=== PATIENT | female | born 1990 | race Caucasian/White ===

== ENCOUNTER 2022-07-03 13:51 | Outpatient (CLI) | payer SELFPAY ==
[2022-07-03 15:02] LABS: Clue Cells <20% Clue Cells Seen (None Seen); Trichomonas No Trichomonas Seen (None Seen); Yeast No Yeast Seen (None Seen)
[2022-07-03 16:42] LABS: Chlamydia DNA Amplified* NOT DETECTED (No Detected); GC DNA Amplified* NOT DETECTED (No Detected)
== END 2022-07-03 13:52 | disposition home or self-care (01) ==
PROVIDERS: PCP Family Medicine; Visit Provider Family Medicine
DX: N89.8 Other specified noninflammatory disorders of vagina (principal)
CPT/HCPCS: 87210; 87491; 87591

== ENCOUNTER 2023-11-05 13:41 | Outpatient (CLI) | payer OTHER, SELFPAY | END 2023-11-05 13:42 | disposition home or self-care (01) | PROVIDERS: PCP Family Medicine; Visit Provider Family Medicine | DX: Z01.818 Encounter for other preprocedural examination (principal); G56.01 Carpal tunnel syndrome, right upper limb | CPT/HCPCS: 80048; 85025 ==

== ENCOUNTER 2024-01-08 06:14 | Day surgery (SDC) | payer OTHER, SELFPAY ==
[2024-01-08] VITALS (15 sets, daily range): BP systolic 117–140; BP diastolic 66–85; PULSE 60–72; RESP 14–20; TEMP 36.3–36.6; O2SAT 97–100; BMI 25.2
--- OUTSIDE RECORDS SUMMARY | 2024-01-08 06:16 | XMS_ITS | Encounter Summary ---
Author Name Unknown Organization [place] Address [address] [place] [place] [address] Care Team Providers Care Business Development Recruiter Name Role Phone Zeus Beaulieu MD Primary Care Provider Zeus Beaulieu MD Unavailable [phone] Encounter Details Date Type Department Care Team (Latest Contact Info) Description 10/23/2023 Travel Social History Tobacco Use Types Packs/Day Years Used Date Smoking Tobacco: Never Assessed Adolescent Education Answer Date Record ed Getting School Help Needed Not on file 10/16 Sex and Gender Information Value Date Recorded Sex Assigned at Not on file Gender Identity Not on file Sexual Orientation Not on file documented as of this encounter Plan of Treatment Upcoming Encounters Date Type Department Care Team (Late st Contact Info) Description 02/06/2024 8:30 AM CDT Office Visit [facility] [address] [phone] documented as of this encounter Visit Diagnoses Not on filedocumented in this encounter Care Teams Business Development Recruiter Relationship Specialty Start Date End Date Zeus Beaulieu MD [facility] [address] [address] PCP - General Family Medicine 07/31/23 Zeus Beaulieu MD [facility] [address] [address] 07/31/23 documented as of this encounter
--- OUTSIDE RECORDS SUMMARY | 2024-01-08 06:16 | XMS_ITS | Encounter Summary ---
Author Name Unknown Organization [place] Address [address] [place] [address] Care Team Providers Care Intake Manager Name Role Phone Zeus Beaulieu MD Primary Care Provider Zeus Beaulieu MD Unavailable [phone] Reason for Visit * Consultation (Routine) - Pending Review Specialty Diagnoses / Procedures Referred By Austin calderon Referred To Contact Neurology Diagnoses Carpal tunnel syndrome, bilateral Zeus Beaulieu MD [facility] [address] [address] Referral ID Status Reason Start Date Expiration Date V isits Requested Visits Authorized [id number] Pending Review 07/31/2023 07/30/2024 1 1 Encounter Details Date Type Department Care Team (Late st Contact Info) Description 10/23/2023 8:30 AM DISTILLERY SUPERVISOR Office Visit [facility]rology Clinic [address] [phone] Zeus Beaulieu MD [facility] [address] [address] Rene Duffy MD [address] [place] [address] [address] [place] [address] Carpal tunnel syndrome, bilateral Social History Tobacco Use Types Packs/Day Years Used Date Smoking Tobacco: Never Assessed Adolescent Education Answer Date Record ed Getting School Help Needed Not on file 10/16 Sex and Gender Information Value Date Recorded Sex Assigned at Not on file Gender Identity Not on file Sexual Orientation Not on file documented as of this encounter Progress Notes * Rene Duffy MD - 10/23/2023 8:30 AM CST See procedure note. ILLERY SUPERVISOR documented in this encounter Procedure Notes * Olivia Russo - 10/23/2023 8:30 AM CSTAssociated Order(s): HI NCS MOTOR W OR W/O F-WAVE, 5 OR 6; HI NEEDLE EMG EA EXTREMTY W/PARASPINAL AREA COMPLETE [facility] [address], [address] [place] [address] Patient: Yolanda Jones Gender: Female : 1990 Visit Date: 10/23/2023 8:50:43 AM Interpreted by: Rene Duffy MD Age: 33 years Ref Provider: Zeus Beaulieu MD Reason for visit: Evaluate right upper. c/o numbness, tingling, pain in right hand/wrist > 1 year. Per patient, only right upper extremity is tested. NCS+ Motor Sites Latency Amplitude Distance Velocity Site (ms) Norm (mV) Norm (cm) (m/s) Norm Right Median (APB) Wrist 5.5 < 4.5 3.4 > 3.0 7 Elbow 10.0 - 2.4 - 26 58 > 50 Right Ulnar (ADM) Wrist 2.3 < 3.6 9.1 > 5.0 7 Bel Elbow 6.7 - 8.8 - 24 55 > 50 Abv Elbow 9.1 - 8.2 - 14 58 > 50 NCS+ Sensory Sites Onset Lat Peak Lat Amp (O-P) Distance Velocity Site ms (ms) ??V Norm cm m/s Norm Right Median Wrist-Dig II 3.3 4.2 17 > 15 13 39 > 50 Palm-Wrist 2.4 2.9 30 - 8 33 - Right Ulnar Wrist-Dig V 1.88 2.5 34 > 5 11 59 > 50 Palm-Wrist 1.23 1.70 22 - 8 65 - Inter-Nerve Comparisons Nerve 1 Value 1 Nerve 2 Value 2 Parameter Result Normal Sensory Sites R Median Palm-Wrist 2.9 ms R Ulnar Palm-Wrist 1.70 ms Peak Lat Diff 1.20 ms <0.40 F Wave Studies NR F-Lat (ms) Lat Norm (ms) L-R F-Lat (ms) L-R Lat Norm Right Ulnar (Abd Dig Min) 27.56 <32 <2.5 Electromyography Side Muscle Fib PSW Fasc IA # Amp Dur PPP RcmtRate Note Comment Right Brachiorad None None None N N N N N N N Right Pronator Teres None None None N N N N N N N Right Biceps None None None N N N N N N N Right Deltoid None None None N N N N N N N Right Triceps None None None N N N N N N N Right EDC None None None N N N N N N N Right FCU None None None N N N N N N N Right FDI None None None N N N N N N N Right APB None None None N N N N N N N SUMMARY Nerve conduction and EMG study of right upper extremity shows: Prolonged right median nerve distal motor latency with decreased amplitude and normal conduction velocity. Normal right ulnar distal motor latency, amplitude and conduction velocity. Abnormal right median and normal right ulnar sensory SNAPs. Prolonged right median-ulnar transcarpal peak latency comparison. Monopolar needle exam is normal. CLINICAL INTERPRETATION: This is an abnormal nerve conduction and EMG study. 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 Further clinical correlation is needed. Rene Duffy MD Neurologist [facility] Neurology [facility] Tel:- [phone] ILLERY SUPERVISOR documented in this encounter Plan of Treatment Upcoming Encounters Date Type Department Care Team (Late st Contact Info) Description 02/06/2024 8:30 AM CDT Office Visit [facility] Neurology [address] [phone] documented as of this encounter Procedures Procedure Name Priority Date/Time Associated Diagnosis Comments HI NCS MOTOR W OR W/O F-WAVE, 5 OR 6 Routine 10/23/2023 8:30 AM DISTILLERY SUPERVISOR Carpal tunnel syndrome, bilateral HI NEEDLE EMG EA EXTREMTY W/PARASPINAL AREA COMPLETE Routine 10/23/2023 8:30 AM DISTILLERY SUPERVISOR Carpal tunnel syndrome, bilateral documented in this encounter Results * HI NEEDLE EMG EA EXTREMTY W/PARASPINAL AREA COMPLETE (10/23/2023 8:30 AM DISTILLERY SUPERVISOR) Narrative Rene Duffy MD - 10/23/2023 8:30 AM DISTILLERY SUPERVISOR Rene Duffy MD ? 10/23/2023 ??8:57 AM [facility] [address], [address] [place] [address] Tel: ??[phone] ?? Patient: Yolanda Jones Gender: Female : 1990 Visit Date: 10/23/2023 8:50:43 AM Interpreted by: Rene Duffy MD Age: 33 years Ref Provider: Zeus Beaulieu MD Reason for visit: ??Evaluate right upper. c/o numbness, tingling, pain in right hand/wrist > 1 year. Per patient, only right upper extremity is tested. NCS+ Motor Sites ??Latency Amplitude Distance Velocity Site (ms) Norm (mV) Norm (cm) (m/s) Norm Right Median (APB) Wrist 5.5 ??< 4.5 3.4 ??> 3.0 7 ?? Elbow 10.0 - 2.4 - 26 58 ??> 50 Right Ulnar (ADM) Wrist 2.3 ??< 3.6 9.1 ??> 5.0 7 ?? Bel Elbow 6.7 - 8.8 - 24 55 ??> 50 Abv Elbow 9.1 - 8.2 - 14 58 ??> 50 NCS+ Sensory Sites ??Onset Lat Peak Lat Amp (O-P) Distance Velocity Site ms (ms) ??V Norm cm m/s Norm Right Median Wrist-Dig II 3.3 4.2 17 ??> 15 13 39 ??> 50 Palm-Wrist 2.4 2.9 30 - 8 33 - Right Ulnar Wrist-Dig V 1.88 2.5 34 ??> 5 11 59 ??> 50 Palm-Wrist 1.23 1.70 22 - 8 65 - Inter-Nerve Comparisons Nerve 1 Value 1 Nerve 2 Value 2 Parameter Result Normal Sensory Sites R Median Palm-Wrist 2.9 ms R Ulnar Palm-Wrist 1.70 ms Peak Lat Diff 1.20 ms <0.40 F Wave Studies NR F-Lat (ms) Lat Norm (ms) L-R F-Lat (ms) L-R Lat Norm Right Ulnar (Abd Dig Min) ?? 27.56 <32 ??<2.5 Electromyography Side Muscle Fib PSW Fasc IA # Amp Dur PPP RcmtRate Note Comment Right Brachiorad None None None N N N N N N N ?? Right Pronator Teres None None None N N N N N N N ?? Right Biceps None None None N N N N N N N ?? Right Deltoid None None None N N N N N N N ?? Right Triceps None None None N N N N N N N ?? Right EDC None None None N N N N N N N ?? Right FCU None None None N N N N N N N ?? Right FDI None None None N N N N N N N ?? Right APB None None None N N N N N N N ?? SUMMARY Nerve conduction and EMG study of right upper extremity shows: Prolonged right median nerve distal motor latency with decreased amplitude and normal conduction velocity. Normal right ulnar distal motor latency, amplitude and conduction velocity. Abnormal right median and normal right ulnar sensory SNAPs. Prolonged right median-ulnar transcarpal peak latency comparison. Monopolar needle exam is normal. CLINICAL INTERPRETATION: This is an abnormal nerve conduction and EMG study. ??The study is suggestive of a moderate right median neuropathy (suspected right carpal tunnel). ??Further clinical correlation is needed. Rene Duffy MD Neurologist [facility] Neurology [facility] Tel:- [phone] Rene Duffy MD PROCEDURES * HI NCS MOTOR W OR W/O F-WAVE, 5 OR 6 (10/23/2023 8:30 AM DISTILLERY SUPERVISOR) Narrative Rene Duffy MD - 10/23/2023 8:30 AM DISTILLERY SUPERVISOR Rene Duffy MD ? 10/23/2023 ??8:57 AM [facility] [place], [address], [address] [place] [address] Tel: ??[phone] ?? Patient: Yolanda Jones Gender: Female : 1990 Visit Date: 10/23/2023 8:50:43 AM Interpreted by: Rene Duffy MD Age: 33 years Ref Provider: Zeus Beaulieu MD Reason for visit: ??Evaluate right upper. c/o numbness, tingling, pain in right hand/wrist > 1 year. Per patient, only right upper extremity is tested. NCS+ Motor Sites ??Latency Amplitude Distance Velocity Site (ms) Norm (mV) Norm (cm) (m/s) Norm Right Median (APB) Wrist 5.5 ??< 4.5 3.4 ??> 3.0 7 ?? Elbow 10.0 - 2.4 - 26 58 ??> 50 Right Ulnar (ADM) Wrist 2.3 ??< 3.6 9.1 ??> 5.0 7 ?? Bel Elbow 6.7 - 8.8 - 24 55 ??> 50 Abv Elbow 9.1 - 8.2 - 14 58 ??> 50 NCS+ Sensory Sites ??Onset Lat Peak Lat Amp (O-P) Distance Velocity Site ms (ms) ??V Norm cm m/s Norm Right Median Wrist-Dig II 3.3 4.2 17 ??> 15 13 39 ??> 50 Palm-Wrist 2.4 2.9 30 - 8 33 - Right Ulnar Wrist-Dig V 1.88 2.5 34 ??> 5 11 59 ??> 50 Palm-Wrist 1.23 1.70 22 - 8 65 - Inter-Nerve Comparisons Nerve 1 Value 1 Nerve 2 Value 2 Parameter Result Normal Sensory Sites R Median Palm-Wrist 2.9 ms R Ulnar Palm-Wrist 1.70 ms Peak Lat Diff 1.20 ms <0.40 F Wave Studies NR F-Lat (ms) Lat Norm (ms) L-R F-Lat (ms) L-R Lat Norm Right Ulnar (Abd Dig Min) ?? 27.56 <32 ??<2.5 Electromyography Side Muscle Fib PSW Fasc IA # Amp Dur PPP RcmtRate Note Comment Right Brachiorad None None None N N N N N N N ?? Right Pronator Teres None None None N N N N N N N ?? Right Biceps None None None N N N N N N N ?? Right Deltoid None None None N N N N N N N ?? Right Triceps None None None N N N N N N N ?? Right EDC None None None N N N N N N N ?? Right FCU None None None N N N N N N N ?? Right FDI None None None N N N N N N N ?? Right APB None None None N N N N N N N ?? SUMMARY Nerve conduction and EMG study of right upper extremity shows: Prolonged right median nerve distal motor latency with decreased amplitude and normal conduction velocity. Normal right ulnar distal motor latency, amplitude and conduction velocity. Abnormal right median and normal right ulnar sensory SNAPs. Prolonged right median-ulnar transcarpal peak latency comparison. Monopolar needle exam is normal. CLINICAL INTERPRETATION: This is an abnormal nerve conduction and EMG study. ??The study is suggestive of a moderate right median neuropathy (suspected right carpal tunnel). ??Further clinical correlation is needed. Rene Duffy MD Neurologist [facility] Neurology [facility] Tel:- [phone] Rene Duffy MD PROCEDURES documented in this encounter Visit Diagnoses Diagnosis Carpal tunnel syndrome, bilateral Carpal tunnel syndrome documented in this encounter Care Teams Intake Manager Relationship Specialty Start Date End Date Zeus Beaulieu MD [facility] [address] [place] [address] PCP - General Family Medicine 07/31/23 Zeus Beaulieu MD [facility] [address]. [place] [address] 07/31/23 documented as of this encounter
--- OUTSIDE RECORDS SUMMARY | 2024-01-08 06:16 | XMS_ITS | Encounter Summary ---
Author Name Unknown Organization [place] Address [facility] [address] Care Team Providers Care Whey Department Operator Name Role Phone Zeus Beaulieu MD Primary Care Provider Zeus Beaulieu MD Unavailable [phone] Rene Duffy MD Unavailable [phone] Encounter Details Date Type Department Care Team (Late st Contact Info) Description 11/14/2023 Telephone [facility] [address] [phone] Lizzy Floyd Social History Tobacco Use Types Packs/Day Years Used Date Smoking Tobacco: Never Assessed Adolescent Education Answer Date Record ed Getting School Help Needed Not on file 10/16 Sex and Gender Information Value Date Recorded Sex Assigned at Not on file Gender Identity Not on file Sexual Orientation Not on file documented as of this encounter Miscellaneous Notes * Telephone Encounter - Lizzy Floyd - 11/14/2023 12:32 PM CDT Called at 12:30 on 11-14-2023 and left message to try and schedule an EMG. First availability would be late december/early January. Left a call back number. documented in this encounter Plan of Treatment Upcoming Encounters Date Type Department Care Team (Late st Contact Info) Description 02/06/2024 8:30 AM CDT Office Visit [facility] [address] [place] [address] documented as of this encounter Visit Diagnoses Not on filedocumented in this encounter Care Teams Whey Department Operator Relationship Specialty Start Date End Date Zeus Beaulieu MD [facility] [address] [place] [address] PCP - General Family Medicine 07/31/23 Zeus Beaulieu MD [facility] [address] [address] 07/31/23 Rene Duffy MD [address] [facility] [address] [place] [address] Assigned Neuroscience Provider 11/09/23 documented as of this encounter
--- OUTSIDE RECORDS SUMMARY | 2024-01-08 06:16 | XMS_ITS | Encounter Summary ---
Author Name Unknown Organization [place] Address [address] [facility] [place] [address] Care Team Providers Care Digital Media Producer Name Role Phone Zeus Beaulieu MD Primary Care Provider Zeus Beaulieu MD Unavailable Rene Duffy MD Unavailable [phone] Encounter Details Date Type Department Care Team (Late st Contact Info) Description 11/12/2023 Medical Correspondence [facility] [address] [place] [address] Scan, Non-Provider Social History Tobacco Use Types Packs/Day Years [...] Description 02/06/2024 8:30 AM CDT Office Visit [facility] Neurology Clinic [address] [phone] documented as of this encounter Visit Diagnoses Not on filedocumented in this encounter Care Teams Digital Media Producer Relationship Specialty Start Date End Date Zeus Beaulieu MD [facility] [address] [place] [address] PCP - General Family Medicine 07/31/23 Zeus Beaulieu MD [facility] [address] [place] [address] 07/31/23 Rene Duffy MD [address] [place], [place] [id number] Assigned Neuroscience Provider 11/09/23 documented as of this encounter
--- OUTSIDE RECORDS SUMMARY | 2024-01-08 06:16 | XMS_ITS | Clinical Summary ---
Author Name Unknown Organization [place] Address [facility] [place] [address] Care Team Providers Care Plastic Outfitter Name Role Phone Zeus Beaulieu MD Primary Care Provider [phone] Zeus Beaulieu MD Unavailable [phone] Rene Duffy MD Unavailable [phone] Encounters Date Type Department Care Team Description 11/14/2023 Travel 11/14/2023 Telephone [facility] [address] [place] [address] Lizzy Floyd 11/12/2023 Medical Correspondence [facility] [address] [place] [phone] Scan, Non-Provider 10/23/2023 8:30 AM BATTERY PLATE REMOVER Office Visit [facility] [address] [phone] Zeus Beaulieu MD Aggarwal, Harsh, MD Carpal tunnel syndrome, bilateral 10/23/2023 Travel from Last 3 Months Social History Tobacco Use Types Packs/Day Years Used Date Smoking Tobacco: Never Assessed Adolescent Education Answer Date Record ed Getting School Help Needed Not on file 10/16 Sex and Gender Information Value Date Recorded Sex Assigned at Not on file Gender Identity Not on file Sexual Orientation Not on file Plan of Treatment Upcoming Encounters Date Type Department Care Team (Late Contact Info) Description 02/06/2024 8:30 AM CDT Office Visit [facility] [address] [phone] Health Maintenance Due Date Last Done Comments ADVANCE CARE PLANNING 1990 ANNUAL REVIEW OF HM ORDERS 1990 YEARLY PREVENTIVE VISIT 1990 HIV SCREENING 2005 HEPATITIS C SCREENING 01/25/2008 HEPATITIS B IMMUNIZATION (1 of 3 - 19+ 3-dose series) 2009 PAP 2011 COVID-19 Vaccine (3 - 2022- season) 2023 04/21/2021, 03/23/2021 PHQ-2 (once per calendar year) 2023 DTAP/TDAP/TD IMMUNIZATION (7 - Td or Tdap) 05/25/2026 05/25/2016, 12/22/2014, 12/22/2011, Additional history exists HPV IMMUNIZATION Completed 04/03/2011, , 06/18/2007 INFLUENZA VACCINE Completed 06/19/2023, , 06/04/2017, Additional history exists IPV IMMUNIZATION Aged Out No longer e ligible based on patient's age to complete this topic MENINGITIS IMMUNIZATION Aged Out No l onger eligible based on patient's age to complete this topic Pneumococcal Vaccine: Pediatrics (0 to 5 Years) and At-Risk Patients (6 to 64 Years) Aged Out No longer eligible based on patient's age to complete this topic RSV MONOCLONAL ANTIBODY Aged Out No l onger eligible based on patient's age to complete this topic Procedures Procedure Name Priority Date/Time Associated Diagnosis Comments ME NEEDLE EMG EA EXTREMTY W/PARASPINAL AREA COMPLETE Routine 10/23/2023 8:30 AM BATTERY PLATE REMOVER Carpal tunnel syndrome, bilateral ME NCS MOTOR W OR W/O F-WAVE, 5 OR 6 Routine 10/23/2023 8:30 AM BATTERY PLATE REMOVER Carpal tunnel syndrome, bilateral from Last 3 Months Results * ME NCS MOTOR W OR W/O F-WAVE, 5 OR 6 (10/23/2023 8:30 AM BATTERY PLATE REMOVER) Narrative Rene Duffy MD - 10/23/2023 8:30 AM BATTERY PLATE REMOVER Rene Duffy MD ? 10/23/2023 ??8:57 AM [facility] [address] [place] [address], [address] [place] [address] Tel: ??[phone] ?? Patient: Yolanda Jones Gender: Female : [...] correlation is needed. Rene Duffy MD Neurologist [facility] Neurology [facility] Tel:- [phone] Rene Duffy MD PROCEDURES * ME NEEDLE EMG EA EXTREMTY W/PARASPINAL AREA COMPLETE (10/23/2023 8:30 AM BATTERY PLATE REMOVER) Narrative Rene Duffy MD - 10/23/2023 8:30 AM BATTERY PLATE REMOVER Rene Duffy MD ? 10/23/2023 ??8:57 AM [facility] [address] [place] [address], [address] [place] [address] Tel: ??[phone] ?? Patient: Yolanda Jones Gender: Female : [...] correlation is needed. Rene Duffy MD Neurologist [facility] Neurology [facility] Tel:- [phone] Rene Duffy MD PROCEDURES from Last 3 Months Care Teams Plastic Outfitter Relationship Specialty Start Date End Date Zeus Beaulieu MD [facility] [address], [place] [address] PCP - General Family Medicine 07/31/23 Zeus Beaulieu MD [facility] [address], [place] [address] 07/31/23 Rene Duffy MD [address] [place] [address] Assigned Neuroscience Provider 11/09/23
--- OUTSIDE RECORDS SUMMARY | 2024-01-08 06:16 | XMS_ITS | Referral Summary ---
Author Name Unknown Organization [place] Address [address] [place] [address]. [place] [address] Care Team Providers Care Cutting Inspector Name Role Phone Zeus Beaulieu MD Primary Care Provider Zeus Beaulieu MD Unavailable [phone] Rene Duffy MD Unavailable [phone] Encounters Date Type Department Care Team Description 11/14/2023 Travel 11/14/2023 Telephone [facility] EMG Clinic [address] 3rd [place] [address] Lizzy Floyd 11/12/2023 Medical Correspondence [facility] [address] [place] [phone] Scan, Non-Provider 10/23/2023 Travel 10/23/2023 8:30 AM STEREO COMPILER Office Visit [facility] [address] [phone] Zeus Beaulieu MD Aggarwal, Harsh, MD Carpal tunnel syndrome, bilateral from Last 3 Months Social History Tobacco [...] [facility] [address] [place] [address] [place] [phone] Procedures Procedure Name Priority Date/Time Associated Diagnosis Comments SD NEEDLE EMG EA EXTREMTY W/PARASPINAL AREA COMPLETE Routine 10/23/2023 8:30 AM STEREO COMPILER Carpal tunnel syndrome, bilateral SD NCS MOTOR W OR W/O F-WAVE, 5 OR 6 Routine 10/23/2023 8:30 AM STEREO COMPILER Carpal tunnel syndrome, bilateral from Last 3 Months Results * SD NCS MOTOR W OR W/O F-WAVE, 5 OR 6 (10/23/2023 8:30 AM STEREO COMPILER) Narrative Rene Duffy MD - 10/23/2023 8:30 AM STEREO COMPILER Rene Duffy MD ? 10/23/2023 ??8:57 AM [facility] [address], [address] [place] [address] Tel: ??[phone] ?? Patient: Yolanda Jones Gender: Female : [...] correlation is needed. Rene Duffy MD Neurologist [facility] Neurology [facility] Tel:- [phone] Rene Duffy MD PROCEDURES * SD NEEDLE EMG EA EXTREMTY W/PARASPINAL AREA COMPLETE (10/23/2023 8:30 AM STEREO COMPILER) Narrative Rene Duffy MD - 10/23/2023 8:30 AM STEREO COMPILER Rene Duffy MD ? 10/23/2023 ??8:57 AM [facility], [address], [address] [place] [address] Tel: ??[phone] ?? Patient: Yolanda Jones Gender: Female : [...] correlation is needed. Rene Duffy MD Neurologist [facility] Neurology Clinic [facility] Tel:- [phone] Rene Duffy MD PROCEDURES from Last 3 Months Care Teams Cutting Inspector Relationship Specialty Start Date End Date Zeus Beaulieu MD [facility] [address] [place] [address] PCP - General Family Medicine 07/31/23 Zeus Beaulieu MD [facility] [address] [address] 07/31/23 Rene Duffy MD [address] [place] [address] Assigned Neuroscience Provider 11/09/23
--- OUTSIDE RECORDS SUMMARY | 2024-01-08 06:16 | XMS_ITS | Encounter Summary ---
Author Name Unknown Organization [place] Address [address] [facility] [place] [address] Care Team Providers Care Women'S Soccer Coach Name Role Phone Zeus Beaulieu MD Primary Care Provider Zeus Beaulieu MD Unavailable [phone] Rene Duffy MD Unavailable [phone] Encounter Details Date Type Department Care Team (Latest Contact Info) Description 11/14/2023 Travel Social History Tobacco Use Types Packs/Day [...] Description 02/06/2024 8:30 AM CDT Office Visit [facility] [address] [phone] documented as of this encounter Visit Diagnoses Not on filedocumented in this encounter Care Teams Women'S Soccer Coach Relationship Specialty Start Date End Date Zeus Beaulieu MD [facility] [address] [address] PCP - General Family Medicine 07/31/23 Zeus Beaulieu MD [facility] [address] . [place] [address] 07/31/23 Rene Duffy MD [address] [place] [address] Assigned Neuroscience Provider 11/09/23 documented as of this encounter
--- OUTSIDE RECORDS SUMMARY | 2024-01-08 06:17 | XMS_ITS | Referral Summary ---
Author Name Unknown Organization [facility] Address [address] [place] [address] Care Team Providers Care Trencher Driver Name Role Phone Unavailable Primary Care Provider Unavailabl e Source Comments Patient records contain information from all sites at [facility]. For routine questions regarding patient records, call [phone] during business hours, M-F 8:00 AM - 5:00 PM Central Time. Record requests for emergency care only can be directed to [phone] at any time.[facility] Allergies Active Allergy Reactions Criticality Noted Date Comments Pollen Extracts Other (see comments) Medium 04/25/2022 Sneezing, itchy eyes Medications Medication Sig Dispensed Refills Start Date End Date Status cetirizine (ZyrTEC) 10 mg tablet Take 10 mg by mouth daily. Take 1 tablet daily. Active lamoTRIgine (LaMICtaL) 25 mg tablet Take 25 mg by mouth daily. Take 4 tablets daily. Active Active Problems Problem Noted Date Diagnosed Date Attention Deficit With Hyperactivity Disorder Overview: Attention deficit disorder w/ hyperactivity Depression Major Recurrent Moderate 09/20/2011 Overview: Major depressive disorder, recurrent episode, Moderate Bipolar I Depressed 09/20/2011 Overview: Bipolar affective disorder, depressed Immunizations Name Administration Dates Next Due 4vHPV (discontinued) 06/18/2007 DTaP (Infanrix, Tripedia) 03/18/2009 H1N1 All Forms 07/01/2009 Influenza, Unspecified 07/06/2016,06/03/2009 Tdap 05/25/2016 Social History Tobacco Use Types Packs/Day Years Used Date Smoking Tobacco: Every Day Nutrition Answer Date Recorded Nutrition: EVOO Fat Source Unknown 10/28 Nutrition: Servings of Fruits/Vegetables per Day Not on file 10/28/2020 Dental Answer Date Recorded Dental: Regular Dentist Unknown 10/29/19 21 Sex and Gender Information Value Date Recorded Sex Assigned at Female 04/25/2022 3:36 PM CDT Gender Identity Female 04/25/2022 3:36 PM CDT Sexual Orientation Not on file Last Filed Vital Signs Vital Sign Reading Time Taken Comments Blood Pressure 116/66 08/22/2016 10:58 AM SUPERVISOR ROUGH END Pulse 88 08/22/2016 10:58 AM SUPERVISOR ROUGH END Temperature - - Respiratory Rate 18 04/25/2016 1:17 PM CDT Oxygen Saturation - - Inhaled Oxygen Concentration - - Weight 67.2 kg (148 lb 2.4 oz) 08/22/2016 10:58 AM SUPERVISOR ROUGH END Height 169 cm (5' 6.54) 08/29/2016 10:36 AM SUPERVISOR ROUGH END Body Mass Index 23.53 08/22/2016 10:58 AM SUPERVISOR ROUGH END Plan of Treatment Not on file [address] [place] [address]
--- OUTSIDE RECORDS SUMMARY | 2024-01-08 06:17 | XMS_ITS | Clinical Summary ---
Author Name Unknown Organization [facility] Address [address] [place] [address] Care Team Providers Care Oysterman Name Role Phone Unavailable Primary Care Provider Unavailabl e Source Comments Patient records contain information from all sites at [facility]. For routine questions regarding patient records, call [phone] during business hours, M-F 8:00 AM - 5:00 PM Central Time. Record requests for emergency care only can be directed to [phone] at any time.[facility] Allergies Active Allergy Reactions Criticality Noted Date [...] Comments Blood Pressure 116/66 08/22/2016 10:58 AM MANAGER DIGITAL AD OPERATIONS Pulse 88 08/22/2016 10:58 AM MANAGER DIGITAL AD OPERATIONS Temperature - - Respiratory Rate 18 04/25/2016 1:17 PM CDT Oxygen Saturation - - Inhaled Oxygen Concentration - - Weight 67.2 kg (148 lb 2.4 oz) 08/22/2016 10:58 AM MANAGER DIGITAL AD OPERATIONS Height 169 cm (5' 6.54) 08/29/2016 10:36 AM MANAGER DIGITAL AD OPERATIONS Body Mass Index 23.53 08/22/2016 10:58 AM MANAGER DIGITAL AD OPERATIONS Plan of Treatment Health Maintenance Due Date Last Done Comments Cervical Cancer Screening 1990 HIV Screening 1990 Hepatitis C Screening 1990 Tobacco Cessation counseling 1990 Pneumococcal vaccine (0-64 y ears) (1 of 2 - PCV) 01/25/1996 Hepatitis B Vaccines (1 of 3 - 19+ 3-dose series) 2009 COVID-19 Vaccine (3 - 2022-2 4 season) 2023 04/21/2021, 03/23/2021 Depression Screening (Annual PHQ-2) 08/27/2023 DTaP,Tdap,and Td Vaccines (1 3 - Td or Tdap) 05/25/2026 05/25/2016, 12/22/2014, 12/22/2011, Additional history exists HPV Vaccines Completed 04/03/2011, 03/2011, 12/20/2009, Additional history exists Influenza Vaccine Completed 06/19/2023, , 06/04/2017, Additional history exists [address] [place] [address]
--- OUTSIDE RECORDS SUMMARY | 2024-01-08 06:17 | XMS_ITS ---
Author Name Unknown Organization [facility] Address [address] [place] [address] Care Team Providers Care Nozzle Operator Name Role Phone Unavailable Unavailable Unavailable Surgery Details Not on file Complications Check Surgery Details section. Procedure Estimated Blood Loss Check Surgery Details section. Procedure Findings Check Surgery Details section. Procedure Specimens Taken Check Surgery Details section.
[2024-01-08] MEDS: BUPIVACAINE 0.25 %/EPI 1:200K 30 ml INJECTION (07:22)
[2024-01-08] MEDS: LIDOCAINE 2%-EPI 1:200,000 20 ML TOPICAL (07:22)
--- NOTE | 2024-01-08 14:10 | PM.ORPRC ---
Procedure Note Date of procedure: 01/08/24 Procedure: Preop diagnosis: Right upper extremity carpal tunnel syndrome, de quervain's tenosynovitis Postop diagnosis: Right upper extremity carpal tunnel syndrome, de quervain's tenosynovitis Procedure: Right upper extremity carpal tunnel release, 1st dorsal compartment release Anesthesia: Local Surgeon: Mikey Gardner MD research program assistant: JUSTIN Jay EBL: 5 mL Complications: None Specimens: None Drains: None Antibiotics: Ancef 1 g Indications: The patient has a history of right upper extremity carpal tunnel syndrome and de quervain's symptoms. Despite appropriate nonoperative management consisting of nighttime bracing and occupational therapy they continue to have symptoms. Operative intervention was recommended. The risks, benefits alternatives and expected outcomes were discussed in detail. These included but were not limited to: Infection, bleeding, injury to blood vessel or nerve, venous thromboembolism. All questions were answered to their satisfaction. The patient was placed supine on the operating room table. Local anesthesia was established with 0.5% Marcaine with epinephrine and 2% lidocaine with epinephrine. The upper extremity was prepped and draped in usual sterile fashion. A longitudinal incision was made centered over the radial border of the ring finger at the base of the palm. Subcutaneous dissection was sharply taken through the palmar fascia and the palmaris brevis to the transverse carpal ligament. The ligament was divided in line with the incision. Proximal and distal dissection was carried with tenotomy and Metzenbaum scissors for a wide decompression of the carpal tunnel. Attention was then turned to the 1st dorsal compartment. A longitudinal incision was made centered over the 1st dorsal compartment. Subcutaneous dissection was taken with tenotomy scissors to the 1st dorsal compartment. Branches of the radial sensory nerve were protected and retracted out of the field. The retinaculum over the 1st dorsal compartment was divided longitudinally. The tenosynovium surrounding the tendons of the 1st dorsal compartment was debrided with the tenotomy scissors. There were no septae dividing the 1st dorsal compartment. The edges of the retinaculum were resected with the scalpel. The hand wound was closed with a 3-0 nylon, the wrist wound with 3-0 Vicryl and 4-0 Monocryl, sealed with glue. A bulky dry dressing was applied, sponge and needle counts were correct x 2. The patient tolerated the procedure well, there were no apparent complications. They were sent to same day surgery in satisfactory condition. Plan: Use of the hand as tolerates. Discontinue the intraoperative dressing on postoperative day 3 and may get the wound wet as tolerates. Follow up in the office in 2 weeks for a wound check and suture removal.
== END 2024-01-08 08:43 | disposition home or self-care (01) ==
LOC: OR 06:14
PROVIDERS: PCP Family Medicine; Visit Provider Orthopaedic Surgery
PROC: (CPT 64721; principal; 2024-01-08 07:15)
PROC: (CPT 25000; 2024-01-08 07:15)
DX: G56.01 Carpal tunnel syndrome, right upper limb (principal); M65.4 Radial styloid tenosynovitis [de Quervain]
CPT/HCPCS: 64721; 25000

== ENCOUNTER 2024-02-19 10:34 | Day surgery (SDC) | payer OTHER, SELFPAY ==
[2024-02-19] VITALS (12 sets, daily range): BP systolic 132–170; BP diastolic 69–102; PULSE 60–70; RESP 16; TEMP 36.7–36.9; O2SAT 95–100; BMI 24.3
--- OUTSIDE RECORDS SUMMARY | 2024-02-19 10:37 | XMS_ITS | Encounter Summary ---
Author Organization [place] Address [address] [facility] [place] [address] Care Team Providers Care Bus Driver/Monitor Name Role Phone Zeus Beaulieu MD Primary Care Provider Zeus Beaulieu MD Unavailable [phone] Rene Duffy MD Unavailable [phone] Encounter Details Date Type Department Care [...] as of this encounter Plan of Treatment Not on file documented as of this encounter Visit Diagnoses Not on filedocumented in this encounter Care Teams Bus Driver/Monitor Relationship Specialty Start Date End Date Zeus Beaulieu MD [facility] [address] [place] [address] PCP - General Family Medicine 07/31/23 Zeus Beaulieu MD [facility] [address] [place] [address] 07/31/23 Rene Duffy MD [address] [place] [address] Assigned Neuroscience Provider 11/09/23 02/16/24 documented as of this encounter
--- OUTSIDE RECORDS SUMMARY | 2024-02-19 10:37 | XMS_ITS | Referral Summary ---
Author Organization [facility] Address [address] [place] [address] Care Team Providers Care Green Building Engineer Name Role Phone Unavailable Primary Care Provider Unavailabl e Source Comments Patient records contain information from all sites at [facility]. For routine questions regarding patient records, call [phone] during business hours, M-F 8:00 AM - 5:00 PM Central Time. Record requests for emergency care only can be directed to [phone] at any time.[facility] Allergies Active Allergy Reactions Criticality Noted Date [...] Comments Blood Pressure 116/66 08/22/2016 10:58 AM BOARDING KENNEL OR CATTERY OPERATOR Pulse 88 08/22/2016 10:58 AM BOARDING KENNEL OR CATTERY OPERATOR Temperature - - Respiratory Rate 18 04/25/2016 1:17 PM CDT Oxygen Saturation - - Inhaled Oxygen Concentration - - Weight 67.2 kg (148 lb 2.4 oz) 08/22/2016 10:58 AM BOARDING KENNEL OR CATTERY OPERATOR Height 169 cm (5' 6.54) 08/29/2016 10:36 AM BOARDING KENNEL OR CATTERY OPERATOR Body Mass Index 23.53 08/22/2016 10:58 AM BOARDING KENNEL OR CATTERY OPERATOR Plan of Treatment Not on file [address] [place] [address]
--- OUTSIDE RECORDS SUMMARY | 2024-02-19 10:37 | XMS_ITS | Referral Summary ---
Author Organization [place] Address [address] [facility] [place] [address] Care Team Providers Care Production Control Pegboard Clerk Name Role Phone Zeus Beaulieu MD Primary Care Provider [phone] Zeus Beaulieu MD Unavailable [phone] Allan Napoles MD Unavailable [phone] Encounters Date Type Department Care Team Description 02/06/2024 Travel 02/06/2024 8:30 AM CDT Office Visit [facility] [address] [phone] Allan Napoles MD Carpal tunnel syndrome, bilateral (Primary Dx) from Last 3 Months Social History Tobacco Use Types Packs/Day Years Used Date Smoking Tobacco: Never Assessed Adolescent Education Answer Date Record ed Getting School Help Needed Not on file 10/16 Sex and Gender Information Value Date Recorded Sex Assigned at Not on file Gender Identity Not on file Sexual Orientation Not on file Plan of Treatment Not on file Procedures Procedure Name Priority Date/Time Associated Diagnosis Comments NM NCS MOTOR W OR W/O F-WAVE, 7 OR 8 Routine 02/06/2024 8:30 AM CDT Carpal tunnel syndrome, bilateral NM NEEDLE EMG EA EXTREMTY W/PARASPINAL AREA COMPLETE Routine 02/06/2024 8:30 AM CDT Carpal tunnel syndrome, bilateral from Last 3 Months Results * NCS Motor w or w/o F-Wave, 7 or 8 (02/06/2024 8:30 AM CDT) Narrative Allan Napoles MD - 02/06/2024 8:30 AM CDT Allan Napoles MD ? 02/06/2024 10:04 AM [facility] [address] [place] [address], [address] [place] [address] Tel: ??[phone] ?? Patient: Yolanda Jones Gender: Female : 1990 Visit Date: 02/06/2024 8:31:23 AM Interpreted by: Allan Napoles MD Age: 34 years Ref Provider: Zeus Beaulieu MD Reason for visit: ??Evaluate left upper. c/o numbness, tingling in left hand/fingers > 1 year. NCS+ Motor Sites ??Latency Amplitude Distance Velocity Site (ms) Norm (mV) Norm (cm) (m/s) Norm Left Median (APB) Wrist 4.8 ??< 4.5 7.0 ??> 3.0 7 ?? Elbow 8.8 - 6.0 - 24 60 ??> 50 Left Ulnar (ADM) Wrist 2.4 ??< 3.6 11.3 ??> 5.0 7 ?? Bel Elbow 5.8 - 10.5 - 21 62 ??> 50 Abv Elbow 7.8 - 10.6 - 13 65 ??> 50 NCS+ Sensory Sites ??Onset Lat Peak Lat Amp (O-P) Distance Velocity Site ms (ms) ??V Norm cm m/s Norm Left Median Wrist-Dig II 2.8 3.5 20 ??> 15 13 46 ??> 50 Palm-Wrist 2.1 2.5 103 - 8 38 - Left Ulnar Wrist-Dig V 1.85 2.4 35 ??> 5 11 59 ??> 50 Palm-Wrist 1.25 1.80 21 - 8 64 - Left Radial (Rec:Wrist) Forearm 1.55 2.2 29 ??> 15 10 65 - Inter-Nerve Comparisons Nerve 1 Value 1 Nerve 2 Value 2 Parameter Result Normal Sensory Sites L Median Palm-Wrist 2.5 ms L Ulnar Palm-Wrist 1.80 ms Peak Lat Diff 0.70 ms <0.40 F Wave Studies NR F-Lat (ms) Lat Norm (ms) L-R F-Lat (ms) L-R Lat Norm Left Ulnar (Abd Dig Min) ?? 27.11 <32 ??<2.5 Electromyography Side Muscle Fib PSW Fasc IA # Amp Dur PPP RcmtRate Note Comment Left Brachiorad None None None N N N N N N N ?? Left Pronator Teres None None None N N N N N N N ?? Left Biceps None None None N N N N N N N ?? Left Deltoid None None None N N N N N N N ?? Left Triceps None None None N N N N N N N ?? Left EDC None None None N N N N N N N ?? Left FCU None None None N N N N N N N ?? Left FDI None None None N N N N N N N ?? Left APB None None None N N N N N N N ?? Waveforms: Motor ?? Sensory ? Left median motor conduction study prolonged distal latency 4.8 ms Left median snap potential peak latency 3.5 ms upper limit of normal Left median palmar latency prolonged 2.5 ms Left median palm are/ulnar difference 0.7 ms abnormal Left ulnar motor conduction study normal Left ulnar F wave latency normal Left ulnar snap potential normal Left ulnar palmar latency normal Left radial snap potential normal Needle examination left upper extremity no active or chronic denervation, normal Impression 1. 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 Allan Napoles MD PROCEDURES * Needle EMG Each Extremity w/Paraspinal Area Complete (21827) (02/06/2024 8:30 AM CDT) Narrative Allan Napoles MD - 02/06/2024 8:30 AM CDT Allan Napoles MD ? 02/06/2024 10:04 AM [facility] [address] [place] [address], [address] [place] [address] Tel: ??[phone] ?? Patient: Yolanda Jones Gender: Female : 1990 Visit Date: 02/06/2024 8:31:23 AM Interpreted by: Allan Napoles MD Age: 34 years Ref Provider: Zeus Beaulieu MD Reason for visit: ??Evaluate left upper. c/o numbness, tingling in left hand/fingers > 1 year. NCS+ Motor Sites ??Latency Amplitude Distance Velocity Site (ms) Norm (mV) Norm (cm) (m/s) Norm Left Median (APB) Wrist 4.8 ??< 4.5 7.0 ??> 3.0 7 ?? Elbow 8.8 - 6.0 - 24 60 ??> 50 Left Ulnar (ADM) Wrist 2.4 ??< 3.6 11.3 ??> 5.0 7 ?? Bel Elbow 5.8 - 10.5 - 21 62 ??> 50 Abv Elbow 7.8 - 10.6 - 13 65 ??> 50 NCS+ Sensory Sites ??Onset Lat Peak Lat Amp (O-P) Distance Velocity Site ms (ms) ??V Norm cm m/s Norm Left Median Wrist-Dig II 2.8 3.5 20 ??> 15 13 46 ??> 50 Palm-Wrist 2.1 2.5 103 - 8 38 - Left Ulnar Wrist-Dig V 1.85 2.4 35 ??> 5 11 59 ??> 50 Palm-Wrist 1.25 1.80 21 - 8 64 - Left Radial (Rec:Wrist) Forearm 1.55 2.2 29 ??> 15 10 65 - Inter-Nerve Comparisons Nerve 1 Value 1 Nerve 2 Value 2 Parameter Result Normal Sensory Sites L Median Palm-Wrist 2.5 ms L Ulnar Palm-Wrist 1.80 ms Peak Lat Diff 0.70 ms <0.40 F Wave Studies NR F-Lat (ms) Lat Norm (ms) L-R F-Lat (ms) L-R Lat Norm Left Ulnar (Abd Dig Min) ?? 27.11 <32 ??<2.5 Electromyography Side Muscle Fib PSW Fasc IA # Amp Dur PPP RcmtRate Note Comment Left Brachiorad None None None N N N N N N N ?? Left Pronator Teres None None None N N N N N N N ?? Left Biceps None None None N N N N N N N ?? Left Deltoid None None None N N N N N N N ?? Left Triceps None None None N N N N N N N ?? Left EDC None None None N N N N N N N ?? Left FCU None None None N N N N N N N ?? Left FDI None None None N N N N N N N ?? Left APB None None None N N N N N N N ?? Waveforms: Motor ?? Sensory ? Left median motor conduction study prolonged distal latency 4.8 ms Left median snap potential peak latency 3.5 ms upper limit of normal Left median palmar latency prolonged 2.5 ms Left median palm are/ulnar difference 0.7 ms abnormal Left ulnar motor conduction study normal Left ulnar F wave latency normal Left ulnar snap potential normal Left ulnar palmar latency normal Left radial snap potential normal Needle examination left upper extremity no active or chronic denervation, normal Impression 1. 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 Allan Napoles MD PROCEDURES from Last 3 Months Care Teams Production Control Pegboard Clerk Relationship Specialty Start Date End Date Zeus Beaulieu MD [facility] [address] [address] PCP - General Family Medicine 07/31/23 Zeus Beaulieu MD [facility] [address] [address] 07/31/23 Allan Napoles MD [address] [place] [address] Assigned Neuroscience Provider 02/17/24
--- OUTSIDE RECORDS SUMMARY | 2024-02-19 10:37 | XMS_ITS | Clinical Summary ---
Author Organization [facility] Address [address] [place] [address] Care Team Providers Care Hadoop Admin Name Role Phone Unavailable Primary Care Provider Unavailabl e Source Comments Patient records contain information from all sites at [facility]. For routine questions regarding patient records, call [phone] during business hours, M-F 8:00 AM - 5:00 PM Central Time. Record requests for emergency care only can be directed to [phone] at any time.[facility] Allergies Active Allergy Reactions Criticality Noted Date [...] Comments Blood Pressure 116/66 08/22/2016 10:58 AM STAFF THERAPIST Pulse 88 08/22/2016 10:58 AM STAFF THERAPIST Temperature - - Respiratory Rate 18 04/25/2016 1:17 PM CDT Oxygen Saturation - - Inhaled Oxygen Concentration - - Weight 67.2 kg (148 lb 2.4 oz) 08/22/2016 10:58 AM STAFF THERAPIST Height 169 cm (5' 6.54) 08/29/2016 10:36 AM STAFF THERAPIST Body Mass Index 23.53 08/22/2016 10:58 AM STAFF THERAPIST Plan of Treatment Health Maintenance Due Date [...] history exists [address] [place] [address]
--- OUTSIDE RECORDS SUMMARY | 2024-02-19 10:37 | XMS_ITS | Encounter Summary ---
Author Organization [place] Address [address] [facility] [place] [address] Care Team Providers Care Respite Coordinator Name Role Phone Zeus Beaulieu MD Primary Care Provider Zeus Beaulieu MD Unavailable [phone] Rene Duffy MD Unavailable [phone] Encounter Details Date Type Department Care Team (Late st Contact Info) Description 11/14/2023 Telephone [facility] [address] [place] [address] Lizzy Floyd Social History Tobacco Use [...] documented in this encounter Plan of Treatment Not on file documented as of this encounter Visit Diagnoses Not on filedocumented in this encounter Care Teams Respite Coordinator Relationship Specialty Start Date End Date Zeus Beaulieu MD [facility] [address] [place] [address] PCP - General Family Medicine 07/31/23 Zeus Beaulieu MD [facility] [address] [address] 07/31/23 Rene Duffy MD [address] [place] [address] Assigned Neuroscience Provider 11/09/23 02/16/24 documented as of this encounter
--- OUTSIDE RECORDS SUMMARY | 2024-02-19 10:37 | XMS_ITS | Clinical Summary ---
Author Organization [place] Address [address] [facility] [place] [address] Care Team Providers Care Barrel Assembler Name Role Phone Zeus Beaulieu MD Primary Care Provider Zeus Beaulieu MD Unavailable [phone] Allan Napoles MD Unavailable [phone] Encounters Date Type Department Care Team Description 02/06/2024 8:30 AM CDT Office Visit [facility] [address] [address] Allan Napoles MD Carpal tunnel syndrome, bilateral (Primary Dx) 02/06/2024 Travel from Last 3 Months Social History Tobacco Use Types Packs/Day Years Used Date Smoking Tobacco: Never Assessed Adolescent Education Answer Date Record ed Getting School Help Needed Not on file 10/16 Sex and Gender Information Value Date Recorded Sex Assigned at Not on file Gender Identity Not on file Sexual Orientation Not on file Plan of Treatment Health Maintenance Due Date Last Done Comments ADVANCE CARE PLANNING 1990 ANNUAL REVIEW OF HM ORDERS 1990 YEARLY PREVENTIVE VISIT 1990 HIV SCREENING 2005 HEPATITIS C SCREENING 01/25/2008 HEPATITIS B IMMUNIZATION (1 of 3 - 19+ 3-dose series) 2009 PAP 2011 COVID-19 Vaccine ( season) 2023 04/21/2021, 03/23/2021 PHQ-2 (once per [...] Procedure Name Priority Date/Time Associated Diagnosis Comments [place] NCS MOTOR W OR W/O F-WAVE, 7 OR 8 Routine 02/06/2024 8:30 AM CDT Carpal tunnel syndrome, bilateral [place] NEEDLE EMG EA EXTREMTY W/PARASPINAL AREA COMPLETE Routine 02/06/2024 8:30 AM CDT Carpal tunnel syndrome, bilateral from Last 3 Months Results * NCS Motor w or w/o F-Wave, 7 or 8 (02/06/2024 8:30 AM CDT) Narrative Allan Npaoles MD - 02/06/2024 8:30 AM CDT Allan Napoles MD ? 02/06/2024 10:04 AM [facility], [address], [address] [place] [address] Tel: ??[phone] ?? Patient: Yolanda Jones Gender: Female : [...] Needle EMG Each Extremity w/Paraspinal Area Complete (53674) (02/06/2024 8:30 AM CDT) Narrative Allan Napoles MD - 02/06/2024 8:30 AM CDT Allan Napoles MD ? 02/06/2024 10:04 AM [facility] [address], [address] [place] [address] Tel: ??[phone] ?? Patient: Yolanda Jones Gender: Female : [...] PROCEDURES from Last 3 Months Care Teams Barrel Assembler Relationship Specialty Start Date End Date Zeus Beaulieu MD [facility] [address] [place] [address] PCP - General Family Medicine 07/31/23 Zeus Beaulieu MD [facility] [address] [place] [address] 07/31/23 Allan Napoles MD [address] [place] [address] Assigned Neuroscience Provider 02/17/24
--- OUTSIDE RECORDS SUMMARY | 2024-02-19 10:37 | XMS_ITS ---
Author Organization [facility] Address [address] [place] [address] Care Team Providers Care Transcription Typist Name Role Phone Unavailable Unavailable Unavailable Surgery Details Not on file Complications Check Surgery Details section. Procedure Estimated Blood Loss Check Surgery Details section. Procedure Findings Check Surgery Details section. Procedure Specimens Taken Check Surgery Details section.
--- OUTSIDE RECORDS SUMMARY | 2024-02-19 10:37 | XMS_ITS | Encounter Summary ---
Author Organization [facility] Address [address] [facility] [address] Care Team Providers Care Transitions Manager Name Role Phone Zeus Beaulieu MD Primary Care Provider Zeus Beaulieu MD Unavailable Rene Duffy MD Unavailable [phone] Encounter Details Date Type Department Care Team (Latest Contact Info) Description 02/06/2024 Travel Social History Tobacco Use Types Packs/Day [...] on filedocumented in this encounter Care Teams Transitions Manager Relationship Specialty Start Date End Date Zeus Beaulieu MD [facility] [address] [place] [address] PCP - General Family Medicine 07/31/23 Zeus Beaulieu MD [facility] [address] [place] [address] 07/31/23 Rene Duffy MD [address] [place] [address] Assigned Neuroscience Provider 11/09/23 02/16/24 documented as of this encounter
--- OUTSIDE RECORDS SUMMARY | 2024-02-19 10:37 | XMS_ITS | Encounter Summary ---
Author Organization [facility] Address [address] [facility] [place] [address] Care Team Providers Care Home Appliance Technician Name Role Phone Zeus Beaulieu MD Primary Care Provider Zeus Beaulieu MD Unavailable [phone] Rene Duffy MD Unavailable [phone] Encounter Details Date Type Department Care Team (Late Contact Info) Description 11/12/2023 Medical Correspondence [facility] Info Mgmt S[facility] [address] [place] [address] Scan, Non-Provider Social History Tobacco [...] on filedocumented in this encounter Care Teams Home Appliance Technician Relationship Specialty Start Date End Date Zeus Beaulieu MD [facility] [address]. [place] [address] PCP - General Family Medicine 07/31/23 Zeus Beaulieu MD [facility] [address] [place] [address] 07/31/23 Rene Duffy MD [address] [place] [address] Assigned Neuroscience Provider 11/09/23 02/16/24 documented as of this encounter
--- OUTSIDE RECORDS SUMMARY | 2024-02-19 10:37 | XMS_ITS | Encounter Summary ---
Author Organization [place] Address [address] [facility] [place] [address] Care Team Providers Care Internal Communications Manager Name Role Phone Zeus Beaulieu MD Primary Care Provider Zeus Beaulieu MD Unavailable [phone] Rene Duffy MD Unavailable [phone] Encounter Details Date Type Department Care Team (Late st Contact Info) Description 02/06/2024 8:30 AM CDT Office Visit [facility] [address] [address] Allan Napoles MD [address] [place] [id number] Carpal tunnel syndrome, bilateral (Primary Dx) Social History Tobacco Use Types Packs/Day Years Used Date Smoking Tobacco: Never Assessed Adolescent Education Answer Date Record ed Getting School Help Needed Not on file 10/16 Sex and Gender Information Value Date Recorded Sex Assigned at Not on file Gender Identity Not on file Sexual Orientation Not on file documented as of this encounter Progress Notes * Allan Napoles MD - 02/06/2024 8:30 AM CDT See EMG report documented in this encounter Procedure Notes * Pasha Russoun - 02/06/2024 8:30 AM CDTAssociated Order(s): CO NEEDLE EMG EA EXTREMTY W/PARASPINAL AREA COMPLETE; CO NCS MOTOR W OR W/O F-WAVE, 7 OR 8 Images from the original note were not included. [facility], [address], [address] [place] [address] Patient: Yolanda Jones Gender: Female : 1990 Visit Date: 02/06/2024 8:31:23 AM Interpreted by: Allan Napoles MD Age: 34 years Ref Provider: Zeus Beaulieu MD Reason for visit: Evaluate left upper. c/o numbness, tingling in left hand/fingers > 1 year. NCS+ Motor Sites Latency Amplitude Distance Velocity Site (ms) Norm (mV) Norm (cm) (m/s) Norm Left Median (APB) Wrist 4.8 < 4.5 7.0 > 3.0 7 Elbow 8.8 - 6.0 - 24 60 > 50 Left Ulnar (ADM) Wrist 2.4 < 3.6 11.3 > 5.0 7 Bel Elbow 5.8 - 10.5 - 21 62 > 50 Abv Elbow 7.8 - 10.6 - 13 65 > 50 NCS+ Sensory Sites Onset Lat Peak Lat Amp (O-P) Distance Velocity Site ms (ms) ??V Norm cm m/s Norm Left Median Wrist-Dig II 2.8 3.5 20 > 15 13 46 > 50 Palm-Wrist 2.1 2.5 103 - 8 38 - Left Ulnar Wrist-Dig V 1.85 2.4 35 > 5 11 59 > 50 Palm-Wrist 1.25 1.80 21 - 8 64 - Left Radial (Rec:Wrist) Forearm 1.55 2.2 29 > 15 10 65 - Inter-Nerve Comparisons Nerve 1 Value 1 Nerve 2 Value 2 Parameter Result Normal Sensory Sites L Median Palm-Wrist 2.5 ms L Ulnar Palm-Wrist 1.80 ms Peak Lat Diff 0.70 ms <0.40 F Wave Studies NR F-Lat (ms) Lat Norm (ms) L-R F-Lat (ms) L-R Lat Norm Left Ulnar (Abd Dig Min) 27.11 <32 <2.5 Electromyography Side Muscle Fib PSW Fasc IA # Amp Dur PPP RcmtRate Note Comment Left Brachiorad None None None N N N N N N N Left Pronator Teres None None None N N N N N N N Left Biceps None None None N N N N N N N Left Deltoid None None None N N N N N N N Left Triceps None None None N N N N N N N Left EDC None None None N N N N N N N Left FCU None None None N N N N N N N Left FDI None None None N N N N N N N Left APB None None None N N N N N N N Waveforms: Motor Sensory Left median motor conduction study prolonged distal [...] active or chronic denervation, normal Impression 1. 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 documented in this encounter Plan of Treatment Not on file documented as of this encounter Procedures Procedure Name Priority Date/Time Associated Diagnosis Comments CO NCS MOTOR W OR W/O F-WAVE, 7 OR 8 Routine 02/06/2024 8:30 AM CDT Carpal tunnel syndrome, bilateral CO NEEDLE EMG EA EXTREMTY W/PARASPINAL AREA COMPLETE Routine 02/06/2024 8:30 AM CDT Carpal tunnel syndrome, bilateral documented in this encounter Results * NCS Motor w or w/o F-Wave, 7 or 8 (02/06/2024 8:30 AM CDT) Narrative Allan Napoles MD - 02/06/2024 8:30 AM CDT Allan Napoles MD ? 02/06/2024 10:04 AM [facility] [place] [facility] [address] [place] [address], [address] [place] [address] Tel: ??[phone] ?? Patient: Yolanda Jones Gender: Female : [...] Needle EMG Each Extremity w/Paraspinal Area Complete (14129) (02/06/2024 8:30 AM CDT) Narrative Allan Napoles MD - 02/06/2024 8:30 AM CDT Allan Napoles MD ? 02/06/2024 10:04 AM [facility], [address] [place] [address] Tel: ??[phone] ?? Patient: Yolanda Jones Gender: Female : [...] in degree electrophysiologically. Allan Napoles MD PROCEDURES documented in this encounter Visit Diagnoses Diagnosis Carpal tunnel syndrome, bilateral- Primary Carpal tunnel syndrome documented in this encounter Care Teams Internal Communications Manager Relationship Specialty Start Date End Date Zeus Beaulieu MD [facility] [address] [place] [address] PCP - General Family Medicine 07/31/23 Zeus Beaulieu MD [facility] [address] [place] [address] 07/31/23 Rene Duffy MD [address] [place] [address] Assigned Neuroscience Provider 11/09/23 02/16/24 documented as of this encounter
[2024-02-19] MEDS: BUPIVACAINE 0.5 %/EPI 1:200K INJECTION (12:45)
[2024-02-19] MEDS: ETHYL CHLORIDE 1 APPLICATION 1 APPLIC TOPICAL (12:45)
--- NOTE | 2024-02-19 12:48 | P.ORPRC_ITS ---
Procedure Note Date of procedure: 02/19/24 Procedure: Preop diagnosis: Left upper extremity carpal tunnel syndrome, flexor tenosynovitis Postop diagnosis: Left upper extremity carpal tunnel syndrome, flexor tenosynovitis Procedure: Left upper extremity carpal tunnel release, flexor tenosynovectomy Anesthesia: Local Surgeon: Mikey Gardner MD financial services assistant: HANNAH Zheng EBL: 5 mL Complications: None Specimens: None Drains: None Indications: The patient has a history of left upper extremity carpal tunnel syndrome symptoms. Despite appropriate nonoperative management consisting of nighttime bracing and occupational therapy they continue to have symptoms. Operative intervention was recommended. The risks, benefits alternatives and expected outcomes were discussed in detail. These included but were not limited to: Infection, bleeding, injury to blood vessel or nerve, venous thromboembolism. All questions were answered to their satisfaction. The patient was placed supine on the operating room table. Local anesthesia was established with 0.5% Marcaine with epinephrine and 2% lidocaine with epinephrine. The hand was prepped and draped in usual sterile fashion. A longitudinal incision was made centered over the radial border of the ring fin juno at the base of the palm. Subcutaneous dissection was sharply taken through the palmar fascia and the palmaris brevis to the transverse carpal ligament. The ligament was divided in line with the incision. Proximal and distal dissection was carried with tenotomy and Metzenbaum scissors for a wide decompression of the carpal tunnel. The flexor tendons are in cased in thickened tenosynovium. They are adherent to the median nerve. The tenosynovium was aggressively debrided with tenotomy scissors and the flexor tendons were carefully dissected off of the median nerve as well. The wound was closed with a 3-0 nylon. A bulky dry dressing was applied, sponge and needle counts were correct x 2. The patient tolerated the procedure well, there were no apparent complications. They were sent to same day surgery in satisfactory condition. Plan: Use of the hand as tolerates. Discontinue the intraoperative dressing on postoperative day 3 and may get the wound wet as tolerates. Follow up in the office in 2 weeks for a wound check and suture removal.
== END 2024-02-19 14:15 | disposition home or self-care (01) ==
LOC: OR 10:35
PROVIDERS: PCP Family Medicine; Visit Provider Orthopaedic Surgery
PROC: (CPT 64721; principal; 2024-02-19 12:30)
DX: G56.02 Carpal tunnel syndrome, left upper limb (principal); M65.842 Other synovitis and tenosynovitis, left hand
CPT/HCPCS: 26145; 64721; J3490

== ENCOUNTER 2024-03-28 14:46 | Emergency (ER) | payer OTHER, SELFPAY ==
[2024-03-28 14:53] VITALS: BP 150/103; PULSE 69; RESP 18; TEMP 37; O2SAT 97; BMI 25.1
--- NOTE | 2024-03-28 15:06 | ED.HA ---
HPI - Headache General Time Seen by Provider: 15:06 Date Seen: 03/28/24 Chief Complaint: Headache/Migraine Stated Complaint: Persistent headache since last Sunday Time Seen by Provider: 03/28/24 15:06 Source: patient Mode of arrival: ambulatory Limitations: no limitations History of Present Illness HPI Narrative: Yolanda is a very pleasant 34-year-old female with a longstanding history of intermittent headaches, history of bipolar disorder chronic back pain who comes to the emergency room for evaluation regarding continue his headache for 6 days. Actually states she woke up SundayMarch 22 with a headache. She states that is in her temples and behind her left eye. She notes that this is kind of ?normally should? for her and she has had hospital visits for headaches in the past. He in especially in her younger days. Up to year ago she had been doing quite well and now the headaches are becoming more frequent. She notes that she had some visual problems and her glasses certainly helped but over the last month her headaches have improved crease. She has really no change in her headache quality with sitting up lying down or sitting. She has had no head trauma. No history of blood clots. She denies exposure to COVID or any COVID like symptoms such as cough cold congestion. She does note maybe there is a little bit of fullness in her left ear and over her left sinus. No nasal drainage however. Four out of the last 6 nights she has woken up with an increase in her headache. She has taken ibuprofen but does not really feel that it has helped. She has not seen Neurology for this problem. She notes that doctor Christofer her primary gave her something for headaches in the past but actually made her headache worsened that she does not take any particular medication with the exception of ibuprofen. Patient notes that that headache radiates into her neck from her forehead. Denies numbness or tingling fever or chills. No vomiting or nausea. Notes that the upper part of her vision is somewhat blurry. Patient denies any recent tick bites or camping or a lot of mosquito bites. Related Data Home Medications ?Medication ?Instructions ?Recorded ?Confirmed Medical Cannibis PO 04/27/22 03/03/24 levonorgestrel 21 mcg/24 hr (up to 1 device intrauterine ONCE 07/03/22 03/28/24 8 years) 52 mg intrauterine device (Mirena) cetirizine 10 mg capsule (Zyrtec) 10 mg PO QDAY 07/30/23 03/28/24 Previous Rx's ?Medication ?Instructions ?Recorded hydroxyzine HCl 25 mg tablet 25 mg PO TID PRN anxiety #90 tabs 12/12/22 diclofenac sodium 75 mg 75 mg PO BID #60 tabs 11/05/23 tablet,delayed release lamotrigine 100 mg tablet 100 mg PO BID #180 tabs 02/18/24 (Lamictal) oxycodone-acetaminophen 5 mg-325 1 tab PO Q4-6H PRN pain #5 tabs 02/19/24 mg tablet (Percocet) Allergies Allergy/AdvReac Type Severity Reaction Status Date / Time Seasonal Allergy Mild Uncoded 03/03/24 08:26 Review of Systems Status of ROS: Reports: 6 or more systems reviewed and unremarkable except as noted in History and below [facility] Medical History Passive suicidal ideations ?R45.851 - Suicidal ideations (ICD-10) Borderline personality disorder ?F60.3 - Borderline personality disorder (ICD-10) Chronic daily headache ?R51.9 - Headache, unspecified (ICD-10) Methamphetamine abuse in remission ?F15.11 - Other stimulant abuse, in remission (ICD-10) Bipolar disorder ?F31.9 - Bipolar disorder, unspecified (ICD-10) History of methamphetamine abuse ?F15.11 - Other stimulant abuse, in remission (ICD-10) Chronic low back pain ?M54.50 - Low back pain, unspecified (ICD-10) ?G89.29 - Other chronic pain (ICD-10) Generalized anxiety disorder ?F41.1 - Generalized anxiety disorder (ICD-10) ADHD (attention deficit hyperactivity disorder), combined type ?F90.2 - Attention-deficit hyperactivity disorder, combined type (ICD-10) Major depression, recurrent ?F33.9 - Major depressive disorder, recurrent, unspecified (ICD-10) Surgical History History of carpal tunnel surgery of left wrist (02/19/24) ?Z98.890 - Other specified postprocedural states (ICD-10) History of carpal tunnel release (01/08/24) ?Z98.890 - Other specified postprocedural states (ICD-10) Family History Father Diabetes Prostate cancer Mother Bipolar 1 disorder Social History Narrative: 5-children non long term [employer] smoker Medical marijuana use Smoking Status: Former smoker Do you use any of these nicotine containing products: Vaping Products Second hand tobacco smoke exposure: No How often do you have a drink containing alcohol: never AUDIT-C Alcohol total score: 0 Non-prescribed substance use: marijuana (any form) Little interest or pleasure in doing things: not at all Feeling down, depressed, or hopeless: several days Exam Narrative: Exam Narrative: Patient is alert and oriented. Very pleasant woman. No acute distress. EOM is full pupils equal round. Head is atraumatic. Neck is with full range of motion. It is supple no meningeal signs. Oral cavity with moist mucous membranes. No erythema in the posterior oropharynx. Neck is supple. Heart with regular rate and rhythm and lungs are clear. Moving all extremities. Lower extremities without edema. No obvious rashes noted. Const: Vital Signs, click to edit/add: Vital Signs - 24 hr 03/28/24 14:53 03/28/24 17:38 Temperature 98.6 F Pulse Rate [Right Radial] 69 60 Respiratory Rate 18 Blood Pressure [Ri ght Upper Arm] 150/103 H Pulse Oximetry 97 100 Oxygen Delivery Me thod Room Air Room Air Documenting provider has reviewed patient's vital signs: yes Course Course ED Course: Differential diagnosis includes but is not limited to migraine, headache, COVID, West Nile, other viral illness, strep, Lyme, other tick-borne illness, anxiety. Will place IV and use Toradol 15 mg IV, Reglan 10 mg IV and Benadryl 50 mg IV is for treatment of headache. Will check CBC, comprehensive panel, CRP, West now, tick-borne panel, Lyme, urinalysis. Head CT ordered as well for ongoing and worsening headaches. She has not had imaging in the past per patient report. Vital Signs Vital signs: Initial Vital Signs Temperature 98.6 F 03/28/24 14:53 Temperature Source Temporal Artery Scan 03/28/24 14:53 Pulse Rate 69 03/28/24 14:53 Pulse Rhythm Regular 03/28/24 14:53 Respiratory Rate 18 03/28/24 14:53 Blood Pressure 150/103 H 03/28/24 14:53 Blood Pressure Mean 118 H 03/28/24 14:53 Pulse Oximetry 97 03/28/24 14:53 Oxygen Delivery Method Room Air 03/28/24 14:53 Vital Signs Temperature 98.6 F 03/28/24 14:53 Pulse Rate 69 03/28/24 14:53 Respiratory Rate 18 03/28/24 14:53 Blood Pressure 150/103 H 03/28/24 14:53 Pulse Oximetry 97 03/28/24 14:53 Oxygen Delivery Method Room Air 03/28/24 14:53 Temperature 98.6 F 03/28/24 14:53 Pulse Rate 60 03/28/24 17:38 Respiratory Rate 18 03/28/24 14:53 Blood Pressure 150/103 H 03/28/24 14:53 Pulse Oximetry 100 03/28/24 17:38 Oxygen Delivery Method Room Air 03/28/24 17:38 Medications Administered Medications: Discontinued Medications Generic Name Dose Route Start Last Admin Trade Name Freq PRN Reason Stop Dose Admin Diphenhydramine HCl 50 mg 03/28/24 15:42 03/28/24 16:19 Diphenhydramine 50 Mg/Ml Inj IVP 03/28/24 15:43 50 mg ONCE ONE Administration Metoclopramide HCl 10 mg/ 102 mls @ 306 mls/hr 03/28/24 15:42 03/28/24 16:50 Sodium Chloride IVPB 03/28/24 15:43 Infused ONCE ONE Infusion Sodium Chloride 1,000 mls @ 1,000 mls/hr 03/28/24 15:44 03/28/24 17:35 0.9 % Sodium Chloride 1000 Ml IV 03/28/24 16:43 Infused .Q1H SONNY Infusion Ketorolac Tromethamine 15 mg 03/28/24 15:42 03/28/24 16:19 Ketorolac 15 Mg/Ml Inj IVP 03/28/24 15:43 15 mg ONCE ONE Administration MDM - Headache MDM Narrative Medical decision making narrative: 1. COVID-likely onset of headache 6 days ago. There is some slight fullness in her left cheek and her left ear but no evidence of sinusitis or otitis media. At this time patient is too far out from onset of symptoms to need Paxlovid. Oximetry is acceptable and patient has no respiratory symptoms. Mild leukocytosis consistent with viral diagnosis. Head CT reassuring. 2. Headache-likely secondary to COVID. Patient notes significant relief with Toradol/Reglan/Benadryl cocktail. Headache is down to a 2 which she states is not where she normally is. Suspect that this will improve over the next 2-3 days. 3. Disposition-home at this time. Rest push fluids. Return as needed. Medical Records Attestation: I reviewed the patient's medical records. Lab Data Attestation: I reviewed the patient's lab results. Labs: Lab Results 03/28/24 03/28/24 03/28/24 Range/Units 15:55 16:03 16:37 WBC 4.04 L (4.50-11.00) K/uL RBC 4.56 (4.00-5.20) m/uL Hgb 13.5 (12.0-16.0) gm/dL Hct 39.9 (33.0-51.0) % MCV 88 (80-100) fL MCH 30 (26-34) pg MCHC 34 (32-36) gm/dL RDW Coeff of Barry 11.7 (11.5-15.5) % Plt Count 331 (140-440) K/uL Neut % (Auto) 46.9 (42.0-72.0) % Lymph % (Auto) 39.1 (20-44) % [place] % (Auto) 11.1 H (0.0-11.0) % Eos % (Auto) 1.7 (0.0-7.0) % Baso % (Auto) 0.5 (0.0-3.0) % Neut # (Auto) 1.90 (1.7-7.0) K/uL Lymph # (Auto) 1.60 (0.90-2.90) K/uL [place] # (Auto) 0.40 (0.00-0.90) K/UL Eos # (Auto) 0.10 (0.00-0.50) K/uL Baso # (Auto) 0.00 (0.00-0.30) K/uL Abs Immat Gran (auto) 0.00 (0.00-0.30) K/uL Imm/Tot Granulo (auto) 0.7 % Sodium 138 (135-149) mmol/L Potassium 3.6 (3.6-5.1) mmol/L Chloride 104 (96-114) mmol/L Carbon Dioxide 25 (20-32) mmol/L Anion Gap 9 (7-15) mEq/L BUN 10 (5-24) mg/dL Creatinine 0.7 (0.5-1.5) mg/dL Estimated Creat Clear 114.23 Estimated GFR 116 ml/min Glucose 79 (60-115) mg/dL Calcium 9.6 (8.4-10.6) mg/dL Total Bilirubin 1.5 (0.1-1.5) mg/dL AST 26 (12-35) U/L ALT 14 (4-35) U/L Alkaline Phosphatase 73 (40-150) U/L C-Reactive Protein 1.0 (0.5-1.0) mg/dL Total Protein 7.7 (6.0-8.3) g/dL Albumin 4.9 (3.3-5.0) g/dL Urine Color Yellow (Yellow) Urine Appearance Clear (Clear) Urine pH 6.5 (5.0-8.5) Ur Specific [place] 1.010 (1.000-1.030) Urine Protein Negative (Negative) Urine Glucose (UA) Negative (Negative) Urine Ketones Negative (Negative) Urine Blood Trace-intact A (Negative) Urine Nitrite Negative (Negative) Urine Bilirubin Negative (Negative) Urine Urobilinogen 0.2 (0.2-1.0) Ur Leukocyte Esterase Negative (Negative) Urine RBC 0-2 (0-2) Urine WBC 0-2 (0-5) Ur Squamous Epith Cells Few (None-Few) Urine Bacteria None (None) SARS-CoV-2 (PCR) POSITIVE SARS-CoV-2 A (Negative) Imaging Data CT scan - head: Attestation: I have reviewed the pertinent imaging results. My impression: By my read no acute findings. Radiologist's impression: No CT evidence of acute cortical infarct. No loss of nicholson white matter differentiation. No hyperdense vessels to suggest intracranial thrombus. No acute intracranial hemorrhage. No mass effect or midline shift. No hydrocephalus or extra-axial collections. White matter is within normal limits for age. No acute osseous abnormalities. Mastoid air cells and paranasal sinuses are clear. Normal soft tissues. IMPRESSION: IMPRESSION:1. No CT evidence of acute cortical infarct. No acute intracranial hemorrhage. No other acute intracranial findings. Discharge Plan Discharge Prescriptions: No Action Medical Cannibis PO Zyrtec 10 mg capsule 10 mg PO QDAY diclofenac sodium 75 mg tablet,delayed release (DR/EC) 75 mg PO BID Qty: 60 0RF Hold Instructions: per pt Mirena 20 mcg/24 hours (8 yrs) 52 mg intrauterine device 1 device intrauterine ONCE Rx Instructions: as a single dose hydroxyzine HCl 25 mg tablet 25 mg PO TID PRN (Reason: anxiety) Qty: 90 2RF Hold Instructions: per pt oxycodone-acetaminophen [Percocet] 5-325 mg tablet 1 tab PO Q4-6H PRN (Reason: pain) Qty: 5 0RF Hold Instructions: per pt Rx Instructions: Minimize. Discontinue as soon as possible lamotrigine [Lamictal] 100 mg tablet 100 mg PO BID Qty: 180 0RF Follow Up/Referrals: Zeus Beaulieu MD [Primary Care Provider] -
--- NOTE | 2024-03-28 15:42 | CRLHL7_ITS ---
For Patients: As a result of the Century Cures Act, medical imaging exams and procedure reports are released immediately into your electronic medical record. You may view this report before your referring provider. If you have questions, please contact your health care provider. INDICATION: Headaches. TECHNIQUE: CT of the head without contrast. Coronal and sagittal reformats are included. COMPARISON: None. FINDINGS: No CT evidence of acute cortical infarct. No loss of nicholson white matter differentiation. No hyperdense vessels to suggest intracranial thrombus. No acute intracranial hemorrhage. No mass effect or midline shift. No hydrocephalus or extra-axial collections. White matter is within normal limits for age. No acute osseous abnormalities. Mastoid air cells and paranasal sinuses are clear. Normal soft tissues. IMPRESSION: IMPRESSION:1. No CT evidence of acute cortical infarct. No acute intracranial hemorrhage. No other acute intracranial findings. Please note that all CT scans at this facility use dose modulation, iterative reconstruction, and/or weight-based dosing when appropriate to reduce radiation dose to as low as reasonably achievable. Dictated by Isidro Rosa MD @ 03/28/2024 4:39:39 PM (Electronically Signed)
--- OUTSIDE RECORDS SUMMARY | 2024-03-28 15:50 | XMS_ITS | Encounter Summary ---
Author Organization [place] Address [address] [facility] [place] [address] Care Team Providers Care Fishing Rod Assembler Name Role Phone Zeus Beaulieu MD Primary Care Provider Zeus Beaulieu MD Unavailable [phone] Rene Duffy MD Unavailable [phone] Encounter Details Date Type Department Care Team (Late st Contact Info) Description 02/06/2024 8:30 AM CDT Office Visit [facility] [address] [address] Allan Napoles MD [address] [place] [id number] Carpal tunnel syndrome, bilateral (Primary Dx) [...] documented in this encounter Procedure Notes * Pahsa Russoun - 02/06/2024 8:30 AM CDTAssociated Order(s): AL NEEDLE EMG EA EXTREMTY W/PARASPINAL AREA COMPLETE; AL NCS MOTOR W OR W/O F-WAVE, 7 OR 8 Images from the original note were not included. [facility], [address], [address] [place] [address] Patient: Yolanda Jones Gender: Female : 1990 [...] Procedure Name Priority Date/Time Associated Diagnosis Comments AL NCS MOTOR W OR W/O F-WAVE, 7 OR 8 Routine 02/06/2024 8:30 AM CDT Carpal tunnel syndrome, bilateral AL NEEDLE EMG EA EXTREMTY W/PARASPINAL AREA COMPLETE Routine 02/06/2024 8:30 AM CDT Carpal tunnel syndrome, bilateral documented in this encounter Results * NCS Motor w or w/o F-Wave, 7 or 8 (02/06/2024 8:30 AM CDT) Narrative Allan Napoles MD - 02/06/2024 8:30 AM CDT Allan Napoles MD ? 02/06/2024 10:04 AM [facility] [place] [facility] [address] [place] [address], [address] [place] [address] Tel: ??[phone] ?? Patient: Yolanda Jones Gender: Female : [...] Needle EMG Each Extremity w/Paraspinal Area Complete (65722) (02/06/2024 8:30 AM CDT) Narrative Allan Napoles MD - 02/06/2024 8:30 AM CDT Allan Napoles MD ? 02/06/2024 10:04 AM [facility], [address] [place] [address] Tel: ??[phone] ?? Patient: Yolanda Jones Gender: Female : [...] syndrome documented in this encounter Care Teams Fishing Rod Assembler Relationship Specialty Start Date End Date Zeus Beaulieu MD [facility] [address] [place] [address] PCP - General Family Medicine 07/31/23 Zeus Beaulieu MD [facility] [address] [place] [address] 07/31/23 Rene Duffy MD [address] [place] [address] Assigned Neuroscience Provider 11/09/23 02/16/24 documented as of this encounter
--- OUTSIDE RECORDS SUMMARY | 2024-03-28 15:50 | XMS_ITS ---
Author Organization [facility] Address [address] [place] [address] Care Team Providers Care Hands Parter Name Role Phone Unavailable Unavailable Unavailable Surgery Details Not on file Complications Check Surgery Details section. Procedure Estimated Blood Loss Check Surgery Details section. Procedure Findings Check Surgery Details section. Procedure Specimens Taken Check Surgery Details section.
--- OUTSIDE RECORDS SUMMARY | 2024-03-28 15:50 | XMS_ITS | Referral Summary ---
Author Organization [place] Address [address] [facility] [place] [address] Care Team Providers Care Plastic Jig And Fixture Builder Name Role Phone Zeus Beaulieu MD Primary Care Provider [phone] Zeus Beaulieu MD Unavailable [phone] Allan Napoles MD Unavailable [phone] Encounters Date Type Department Care Team Description 02/06/2024 Travel 02/06/2024 8:30 AM CDT Office Visit [facility] [address] [address] Allan Napoles MD Carpal tunnel [...] Procedure Name Priority Date/Time Associated Diagnosis Comments CA NCS MOTOR W OR W/O F-WAVE, 7 OR 8 Routine 02/06/2024 8:30 AM CDT Carpal tunnel syndrome, bilateral CA NEEDLE EMG EA EXTREMTY W/PARASPINAL AREA COMPLETE Routine 02/06/2024 8:30 AM CDT Carpal tunnel syndrome, bilateral from Last 3 Months Results * NCS Motor w or w/o F-Wave, 7 or 8 (02/06/2024 8:30 AM CDT) Narrative Allan Napoles MD - 02/06/2024 8:30 AM CDT Allan Napoles MD ? 02/06/2024 10:04 AM [facility] [address] [place] [address], [address] [place] [address] Tel: ??[phone] ?? Patient: Yolanda Jones Gender: Female : [...] Needle EMG Each Extremity w/Paraspinal Area Complete ([id number]) (02/06/2024 8:30 AM CDT) Narrative Allan Napoles MD - 02/06/2024 8:30 AM CDT Allan Napoles MD ? 02/06/2024 10:04 AM [facility] [address] [place] [address], [address] [place] [address] Tel: ??[phone] ?? Patient: Yolanda Jones Gender: Female : [...] from Last 3 Months Care Teams Plastic Jig And Fixture Builder Relationship Specialty Start Date End Date Zeus Beaulieu MD [facility] [address] [address] PCP - General Family Medicine 07/31/23 Zeus Beaulieu MD [facility] [address] [address] 07/31/23 Allan Napoles MD [address] [place] [address] Assigned Neuroscience Provider 02/17/24
--- OUTSIDE RECORDS SUMMARY | 2024-03-28 15:50 | XMS_ITS | Referral Summary ---
Author Organization [facility] Address [address] [place] [address] Care Team Providers Care Internal Review And Audit Compliance Name Role Phone Unavailable Primary Care Provider Unavailabl e Source Comments Patient records contain information from all sites at [facility]. For routine questions regarding patient records, call [phone] during business hours, M-F 8:00 AM - 5:00 PM Central Time. Record requests for emergency care only can be directed to [phone] at any time.[facility] Allergies Active Allergy Reactions Criticality Noted Date [...] Diagnosed Date Attention Deficit With Hyperactivity Disorder Overview (01/16/2017): Attention deficit disorder w/ hyperactivity Depression Major Recurrent Moderate 09/20/2011 Overview (01/16/2017): Major depressive disorder, recurrent episode, Moderate Bipolar I Depressed 09/20/2011 Overview (01/16/2017): Bipolar affective disorder, depressed Immunizations Name Administration [...] Comments Blood Pressure 116/66 08/22/2016 10:58 AM RANGE MASTER Pulse 88 08/22/2016 10:58 AM RANGE MASTER Temperature - - Respiratory Rate 18 04/25/2016 1:17 PM CDT Oxygen Saturation - - Inhaled Oxygen Concentration - - Weight 67.2 kg (148 lb 2.4 oz) 08/22/2016 10:58 AM RANGE MASTER Height 169 cm (5' 6.54) 08/29/2016 10:36 AM RANGE MASTER Body Mass Index 23.53 08/22/2016 10:58 AM RANGE MASTER Plan of Treatment Not on file [address] [place] [address]
--- OUTSIDE RECORDS SUMMARY | 2024-03-28 15:50 | XMS_ITS | Clinical Summary ---
Author Organization [place] Address [address] [facility] [place] [address] Care Team Providers Care Coloring Room Worker Name Role Phone Zeus Beaulieu MD Primary Care Provider [phone] Zeus Beaulieu MD Unavailable [phone] Allan Napoles MD Unavailable [phone] Encounters Date Type Department Care Team Description 02/06/2024 8:30 AM CDT Office Visit [facility] [address] [address] Allan Napoles MD Carpal tunnel [...] 03/23/2021 PHQ-2 (once per calendar year) 2023 INFLUENZA VACCINE (#1) 2024 3, 05/15/2018, 06/04/2017, Additional history exists DTAP/TDAP/TD IMMUNIZATION (7 - Td or Tdap) 05/25/2026 05/25/2016, 12/22/2014, 12/22/2011, Additional history exists HPV IMMUNIZATION Completed 04/03/2011, , 06/18/2007 IPV IMMUNIZATION Aged Out No longer e [...] Name Priority Date/Time Associated Diagnosis Comments ME NCS MOTOR W OR W/O F-WAVE, 7 OR 8 Routine 02/06/2024 8:30 AM CDT Carpal tunnel syndrome, bilateral ME NEEDLE EMG EA EXTREMTY W/PARASPINAL AREA COMPLETE Routine 02/06/2024 8:30 AM CDT Carpal tunnel syndrome, bilateral from Last 3 Months Results * NCS Motor w or w/o F-Wave, 7 or 8 (02/06/2024 8:30 AM CDT) Narrative Allan Napoles MD - 02/06/2024 8:30 AM CDT Allan Napoles MD ? 02/06/2024 10:04 AM [facility], [address] [place] [address] Tel: ??[phone] ?? Patient: Yolanda Jones Gender: Female : [...] Needle EMG Each Extremity w/Paraspinal Area Complete ([id number]) (02/06/2024 8:30 AM CDT) Narrative Allan Napoles MD - 02/06/2024 8:30 AM CDT Allan Napoles MD ? 02/06/2024 10:04 AM [facility], [address], [place] [address] Tel: ??[phone] ?? Patient: Yolanda Jones Gender: Female : [...] PROCEDURES from Last 3 Months Care Teams Coloring Room Worker Relationship Specialty Start Date End Date Zeus Beaulieu MD [facility] [address] [address] PCP - General Family Medicine 07/31/23 Zeus Beaulieu MD [facility] [address] [place] [address] 07/31/23 Allan Napoles MD [address] [place] [address] Assigned Neuroscience Provider 02/17/24
--- OUTSIDE RECORDS SUMMARY | 2024-03-28 15:50 | XMS_ITS | Encounter Summary ---
Author Organization [place] Address [address] [facility] [place] [address] Care Team Providers Care Stone Chimney Mason Name Role Phone Zeus Beaulieu MD Primary Care Provider [phone] Zeus Beaulieu MD Unavailable Rene Duffy MD Unavailable [phone] Encounter Details Date Type Department Care [...] on filedocumented in this encounter Care Teams Stone Chimney Mason Relationship Specialty Start Date End Date Zeus Beaulieu MD [facility] [address] [place] [address] PCP - General Family Medicine 07/31/23 Zeus Beaulieu MD [facility] [address] [place] [address] 07/31/23 Rene Duffy MD [address] [place] [address] Assigned Neuroscience Provider 11/09/23 02/16/24 documented as of this encounter
--- OUTSIDE RECORDS SUMMARY | 2024-03-28 15:50 | XMS_ITS | Clinical Summary ---
Author Organization [facility] Address [address] [place] [address] Care Team Providers Care Stitchdowns Toe Former Name Role Phone Unavailable Primary Care Provider Unavailabl e Source Comments Patient records contain information from all sites at [facility]. For routine questions regarding patient records, call [phone] during business hours, M-F 8:00 AM - 5:00 PM Central Time. Record requests for emergency care only can be directed to [phone] at any time.[facility] Allergies Active Allergy Reactions Criticality Noted [...] Comments Blood Pressure 116/66 08/22/2016 10:58 AM FINANCIAL DIRECTOR Pulse 88 08/22/2016 10:58 AM FINANCIAL DIRECTOR Temperature - - Respiratory Rate 18 04/25/2016 1:17 PM CDT Oxygen Saturation - - Inhaled Oxygen Concentration - - Weight 67.2 kg (148 lb 2.4 oz) 08/22/2016 10:58 AM FINANCIAL DIRECTOR Height 169 cm (5' 6.54) 08/29/2016 10:36 AM FINANCIAL DIRECTOR Body Mass Index 23.53 08/22/2016 10:58 AM FINANCIAL DIRECTOR Plan of Treatment Health Maintenance Due Date Last Done Comments Cervical Cancer Screening 1990 HIV Screening 1990 Hepatitis C Screening 1990 Tobacco Cessation counseling 1990 Pneumococcal vaccine (0-64 y ears) (1 of 2 - PCV) 01/25/1996 Hepatitis B Vaccines (1 of 3 - 19+ 3-dose series) 2009 COVID-19 Vaccine (3 - 2022-2 4 season) 2023 04/21/2021, 03/23/2021 Depression Screening (Annual PHQ-2) 08/27/2023 Influenza Vaccine (#1) 2024 , 05/15/2018, 06/04/2017, Additional history exists DTaP,Tdap,and Td Vaccines (1 3 - Td or Tdap) 05/25/2026 05/25/2016, 12/22/2014, 12/22/2011, Additional history exists HPV Vaccines Completed 04/03/2011, 08/0 03/2011, 12/20/2009, Additional history exists [address] [place] [id number]
[2024-03-28 16:11] LABS: Appearance Urine Clear (Clear); Bilirubin Urine Negative (Negative); Blood Urine Trace-intact (Negative); Color Urine Yellow (Yellow); Glucose Urine Negative (Negative); Ketones Urine Negative (Negative); Leukocyte Esterase Urine Negative (Negative); Nitrite Urine Negative (Negative); Protein Urine Negative (Negative); Urobilinogen Urine 0.2 (0.2-1.0); pH Urine 6.5 (5.0-8.5)
[2024-03-28 16:18] LABS: RBC Urine 0-2 (0-2); Squamous Epithelial Cell Urine Few (None-Few); WBC Urine 0-2 (0-5)
[2024-03-28] MEDS: KETOROLAC 15 MG/ML inj IVP (16:19)
[2024-03-28] MEDS: diphenhydrAMINE 50 MG/ML inj IVP (16:19)
[2024-03-28] MEDS: 0.9 % SODIUM CHLORIDE 1000 ml 1,000 ML IV (16:19)
[2024-03-28 16:22] LABS: Basophils Percent Auto 0.5 % (0.0-3.0); Eosinophils Percent Auto 1.7 % (0.0-7.0); Hematocrit 39.9 % (33.0-51.0); Hemoglobin* 13.5 gm/dL (12.0-16.0); Immature Granulocytes Pct Auto 0.7 %; Lymphocytes Percent Auto 39.1 % (20-44); Mean Corpuscular HGB Conc 34 gm/dL (32-36); Mean Corpuscular Hemoglobin 30 pg (26-34); Mean Corpuscular Volume 88 fL (80-100); Monocytes Percent Auto 11.1 % (0.0-11.0); Neutrophils Percent Auto 46.9 % (42.0-72.0); Platelet Count* 331 K/uL (140-440); RDW Coefficient of Variation % 11.7 % (11.5-15.5); Red Blood Count 4.56 m/uL (4.00-5.20); White Blood Count* 4.04 K/uL (4.50-11.00)
[2024-03-28] MEDS: METOCLOPRAMIDE HCL 10 MG in 0.9 % SODIUM CHLORIDE 100 ml 100 ML 306 MG IVPB (16:23)
[2024-03-28 16:25] LABS: Albumin* 4.9 g/dL (3.3-5.0); Chloride* 104 mmol/L (96-114); Sodium* 138 mmol/L (135-149)
[2024-03-28 16:26] LABS: Potassium* 3.6 mmol/L (3.6-5.1)
[2024-03-28 16:27] LABS: Creatinine* 0.7 mg/dL (0.5-1.5); Est. Creatinine Clearance* 114.23; Estimated Glomerular Filt Rate 116 ml/min
[2024-03-28 16:28] LABS: Alanine Aminotransferase* 14 U/L (4-35); Alkaline Phosphatase* 73 U/L (40-150); Anion Gap 9 mEq/L (7-15); Aspartate Amino Transferase* 26 U/L (12-35); Bilirubin Total* 1.5 mg/dL (0.1-1.5); Blood Urea Nitrogen* 10 mg/dL (5-24); Carbon Dioxide* 25 mmol/L (20-32); Glucose* 79 mg/dL (60-115); Total Protein* 7.7 g/dL (6.0-8.3)
[2024-03-28 16:29] LABS: Calcium* 9.6 mg/dL (8.4-10.6)
[2024-03-28 16:51] LABS: Slide Review Reflex No
[2024-03-28 17:25] LABS: SARS PCR* POSITIVE SARS-CoV-2 (Negative)
[2024-03-28 17:38] VITALS: PULSE 60; O2SAT 100
[2024-03-28 18:10] VITALS: PULSE 51; O2SAT 98
[2024-03-28 18:15] VITALS: PULSE 63; O2SAT 99
[2024-03-30 18:33] LABS: Lyme ELISA Reflex 0.13 IV (<=0.90)
[2024-03-31 08:32] LABS: Anaplasma phagocyt PCR Not Detected; Babesia microti by PCR Not Detected; Babesia species by PCR Not Detected; Ehrlichia chaffeensis by PCR Not Detected; Ehrlichia ewingii/canis by PCR Not Detected; Ehrlichia muris-like by PCR Not Detected
== END 2024-03-28 18:23 | disposition home or self-care (01) ==
PROVIDERS: Emergency Provider Family Medicine; PCP Family Medicine
DX: U07.1 COVID-19 (principal); R51.9 Headache, unspecified
CPT/HCPCS: 36415; 70450; 80053; 81001; 85025; 86140; 86618; 86789; 87468; 87469; 87484; 87635; 87798; 96365; 96375; 99284; J1200; J1885; J2765; J7030

== ENCOUNTER 2024-10-19 09:30 | Outpatient (CLI) | payer OTHER, SELFPAY | END 2024-10-19 09:31 | disposition home or self-care (01) | LOC: NFLDREF 10-22 01:17 | PROVIDERS: PCP Family Medicine; Referring Provider Family Medicine | DX: R82.90 Unspecified abnormal findings in urine (principal) | CPT/HCPCS: 87086 ==

== ENCOUNTER 2025-01-12 07:35 | Outpatient (CLI) | payer OTHER, SELFPAY ==
--- NOTE | 2025-01-12 08:00 | CRLHL7_ITS ---
For Patients: As a result of the Century Cures Act, medical imaging exams and procedure reports are released immediately into your electronic medical record. You may view this report before your referring provider. If you have questions, please contact your health care provider. Indication: DEVIATED NASAL SEPTUM. CONGESTION Technique: Performed without IV contrast Comparison: CT brain 03/28/2024 Findings: Frontal sinuses: Clear. Ethmoid sinuses: Clear. Maxillary sinuses: Minimal mucosal thickening within the inferior left maxillary sinus. The maxillary sinus drainage pathways are patent on both sides. Sphenoid sinuses: Clear, including both sphenoethmoidal recesses. Nasal Cavity: Nasal septum is relatively midline with slight rightward curvature. Paradoxical turn of the right middle turbinate. Hailee bullosa left middle turbinate. Lucency about the left maxillary molar roots. Impression: 1. Dental caries involving the left maxillary molar roots. 2. Mild left maxillary sinus disease. 3. No polyps. Please note that all CT scans at this facility use dose modulation, iterative reconstruction, and/or weight-based dosing when appropriate to reduce radiation dose to as low as reasonably achievable. Dictated by Zeus Quinteros MD @ 01/12/2025 10:09:06 AM (Electronically Signed)
== END 2025-01-12 07:36 | disposition home or self-care (01) ==
LOC: CT 07:36
PROVIDERS: PCP Family Medicine; Visit Provider Family Medicine
DX: J34.2 Deviated nasal septum (principal); J32.0 Chronic maxillary sinusitis; R09.81 Nasal congestion
CPT/HCPCS: 70486

== ENCOUNTER 2025-01-23 09:04 | Outpatient (CLI) | payer OTHER, SELFPAY ==
[2025-01-23 14:05] LABS: Clue Cells No Clue Cells Seen (None Seen); Trichomonas No Trichomonas Seen (None Seen); Yeast No Yeast Seen (None Seen)
[2025-01-24 21:24] LABS: HPV Source Cervix; HPV, High Risk by TMA Not Detected
== END 2025-01-23 09:05 | disposition home or self-care (01) ==
PROVIDERS: PCP Family Medicine; Visit Provider Family Medicine
DX: N89.8 Other specified noninflammatory disorders of vagina (principal); Z12.4 Encounter for screening for malignant neoplasm of cervix; Z11.51 Encounter for screening for human papillomavirus (HPV)
CPT/HCPCS: 87210; 87624; 87625; 88141; 88142

== ENCOUNTER 2025-04-13 08:08 | Outpatient (CLI) | payer OTHER, SELFPAY | END 2025-04-13 08:09 | disposition home or self-care (01) | PROVIDERS: PCP Family Medicine; Visit Provider Family Medicine | DX: Z01.818 Encounter for other preprocedural examination (principal) | CPT/HCPCS: 80048; 80061; 85025 ==

== ENCOUNTER 2025-04-17 07:30 | Day surgery (SDC) | payer OTHER, SELFPAY ==
[2025-04-17] VITALS (12 sets, daily range): BP systolic 127–140; BP diastolic 70–93; PULSE 54–79; RESP 14–16; TEMP 36.3–36.8; O2SAT 95–98; BMI 24.3
[2025-04-17] MEDS: LACTATED RINGERS 1000 ML 1,000 ML 100 ML IV (06:15)
[2025-04-17] MEDS: SODIUM CHLORIDE 0.9 % (FLUSH) 10 ML SYRINGE IVF (08:18)
--- NOTE | 2025-04-17 08:19 | SUR.PREOP ---
Dr. Eileen Rebolledo told pt she could keep her piercing's in place during surgery
[2025-04-17 08:20] LABS: Ur HCG Qualitative* Negative (Negative)
[2025-04-17] MEDS: OXYMETAZOLINE 0.05% NASAL SPRAY 2 SPRAY NOSTRIL-B (08:58)
--- NOTE | 2025-04-17 09:36 | P.ENTPROC_ITS ---
Procedure Note Date of procedure: 04/17/25 Procedure: Preoperative diagnosis nasal obstruction, nasal headache, deviated septum, left middle turbinate lupis bullosa, left inferior turbinate hypertrophy Postop diagnosis same major nasal septoplasty, submucous partial resection left inferior turbinate, endoscopic partial resection left middle turbinate lupis bullosa Under general trach anesthesia patient was prepped and draped usual fashion nose decongested and injected. A right hemitransfixion incision was made. Left anterior and posterior tunnels were created. A vertical incision was made the cartilage anterior to the bone and a right posterior tunnel created. The posterior to portions of septal bone and cartilage that were deflected were removed 2 pieces were trimmed returned to intraseptal space. The hemitransfixion was closed with 2 4-0 chromic sutures A stab incision was made in the anterior of the left it in the rear turbinate. A tunnel was created a [place] dissector the lupis bone outfracture. A conservative anterior submucous resection was performed. The Coblation was used for hemostasis and to cauterize intramurally along the inferior 10%. The major procedures with the available assistance of a 0 degree endoscope. The left lupis bullosa was incised along its anterior inferior aspect. The this was done with a 15 blade. The incision was completed with a turbinate scissors. A very small amount of bone was resected and a 2 halves of the lupis bullosa were crushed effectively narrowing it to normal with. Silastic stents were secured ear side of septum with 3-0 nylon and Merocel pack was placed in the middle meatus on each side. Patient procedure was taken recovery in satisfactory condition. Blood loss was less than 10 mL. Surgeon: Sanjay Lr MD
[2025-04-17] MEDS: AYR SALINE NASAL GEL 1 APPLIC NOSTRIL-B (09:40)
[2025-04-17] MEDS: MUPIROCIN 1 GM PACKET 1 APPLIC TOPICAL (09:40)
[2025-04-17] MEDS: BUPIVACAINE 0.5%/EPINEPHRINE 0.9 MG (30.9 ML) INJECTION (09:40)
--- NOTE | 2025-04-17 09:45 | P.ANES_ITS ---
Anesthesia Charges Start Date/Time Anesthesia Start Date: 04/17/25 Anesthesia Start Time: 09:02 Stop Date/Time Anesthesia Stop Date: 04/17/25 Anesthesia Stop Time: 09:45 Coding CPT Codes CPT Codes: ANESTH NOSE/SINUS SURGERY - 32224 ([id number]) P2 - PATIENT W/MILD SYST DISEASE, QX - LINING VAMPER SVC W/ MD MED DIRECTION, QK - ELEVATOR DISPATCHER 2-4 CNCRNT ANES PROC
--- NOTE | 2025-04-17 09:45 | W.ANESCHARGE ---
Anesthesia Charges Start Date/Time Anesthesia Start Date: 04/17/25 Anesthesia Start Time: 09:02 Stop Date/Time Anesthesia Stop Date: 04/17/25 Anesthesia Stop Time: 09:45 Coding CPT Codes CPT Codes: ANESTH NOSE/SINUS SURGERY - 68213 ([id number]) P2 - PATIENT W/MILD SYST DISEASE, QX - PAPER CUP MACHINE OPERATOR SVC W/ MD MED DIRECTION, QK - FELTMAKER 2-4 CNCRNT ANES PROC
--- NOTE | 2025-04-17 09:58 | P.ANES_ITS ---
Anesthesia Charges Start Date/Time Anesthesia Start Date: 04/17/25 Anesthesia Start Time: 09:02 Stop Date/Time Anesthesia Stop Date: 04/17/25 Anesthesia Stop Time: 09:45 Coding CPT Codes CPT Codes: ANESTH NOSE/SINUS SURGERY - 93185 ([id number]) QK - PRIMARY CARE COORDINATOR 2-4 CNCRNT ANES PROC, QX - RESTAURANT ASSISTANT MANAGER SVC W/ MD MED DIRECTION, P2 - PATIENT W/MILD SYST DISEASE
--- NOTE | 2025-04-17 09:58 | W.ANESCHARGE ---
Anesthesia Charges Start Date/Time Anesthesia Start Date: 04/17/25 Anesthesia Start Time: 09:02 Stop Date/Time Anesthesia Stop Date: 04/17/25 Anesthesia Stop Time: 09:45 Coding CPT Codes CPT Codes: ANESTH NOSE/SINUS SURGERY - 30311 ([id number]) QK - PATCHER HELPER 2-4 CNCRNT ANES PROC, QX - CONTINUOUS TOWEL ROLLER SVC W/ MD MED DIRECTION, P2 - PATIENT W/MILD SYST DISEASE
== END 2025-04-17 11:02 | disposition home or self-care (01) ==
LOC: OR 07:31
PROVIDERS: PCP Family Medicine; Visit Provider Otolaryngology
PROC: (CPT 31231; principal; 2025-04-17 09:00)
DX: J34.2 Deviated nasal septum (principal); J34.3 Hypertrophy of nasal turbinates; R51.9 Headache, unspecified; J34.89 Other specified disorders of nose and nasal sinuses
CPT/HCPCS: 30520; 30140; 31240; 00160; 81025; A9270; J0330; J1100; J2405; J2704; J3010; J7120

== ENCOUNTER 2025-07-08 07:12 | Outpatient (CLI) | payer OTHER, SELFPAY ==
--- NOTE | 2025-07-08 07:15 | CRLHL7_ITS ---
For Patients: As a result of the Century Cures Act, medical imaging exams and procedure reports are released immediately into your electronic medical record. You may view this report before your referring provider. If you have questions, please contact your health care provider. INDICATION: Low back pain. TECHNIQUE: Lumbar spine MRI was performed without the administration of intravenous contrast. COMPARISON: : Lumbar spine radiographs 04/02/2025. FINDINGS: There is normal lumbar alignment. No STIR hyperintensity to suggest an acute fracture or ligamentous injury. No suspicious marrow replacement. The vertebral body heights are maintained. Degenerative disc changes at L3-L4 and L4-L5 including disc space height loss. Moderate/severe facet joint hypertrophy at L4-L5. The visualized spinal cord and cauda equina nerve roots are within normal limits. Significant findings by level: T12-L1: No significant spinal canal or neural foraminal narrowing. L1-L2: No significant spinal canal or neural foraminal narrowing. L2-L3: No significant spinal canal or neural foraminal narrowing. L3-L4: Mild spinal canal stenosis due to disc bulge, epidural lipomatosis, and ligamentum flavum thickening. No significant neural foraminal narrowing. L4-L5: Moderate spinal canal stenosis, partial effacement of the lateral recesses with abutment/impingement on the descending L5 nerve roots and mild left neural foraminal stenosis due to disc space height loss, disc bulge with annular fissure, epidural lipomatosis, ligamentum flavum thickening, and facet joint hypertrophy. L5-S1: No significant spinal canal or neural foraminal narrowing. The visualized soft tissues are within normal limits. IMPRESSION: 1. No evidence of acute fracture or malalignment. 2. Degenerative disc changes at L3-L4 and L4-L5 and moderate/severe facet joint hypertrophy at L4-L5. 3. At L4-L5, moderate spinal canal stenosis, partial effacement of the lateral recesses with abutment/impingement of the descending L5 nerve roots, and mild left neural foraminal stenosis. 4. At L3-L4, mild spinal canal stenosis. Dictated by Tyrone Tony MD @ 07/08/2025 7:12:52 PM (Electronically Signed)
== END 2025-07-08 07:13 | disposition home or self-care (01) ==
LOC: MRI 07:13
PROVIDERS: PCP Family Medicine; Visit Provider Family Medicine
DX: M54.50 Low back pain, unspecified (principal); M51.369 Other intervertebral disc degeneration, lumbar region without mention of lumbar back pain or lower extremity pain; M48.061 Spinal stenosis, lumbar region without neurogenic claudication
CPT/HCPCS: 72148

== ENCOUNTER 2025-08-26 07:49 | Outpatient (CLI) | payer OTHER, SELFPAY | END 2025-08-26 07:50 | disposition home or self-care (01) | LOC: INJ CL 07:49 | PROVIDERS: PCP Family Medicine; Visit Provider Nurse Anesthetist, Certified Registered | DX: M54.16 Radiculopathy, lumbar region (principal) | CPT/HCPCS: 64483; J0665; J1100; Q9966 ==